=== PATIENT | male | born 1930 | race Caucasian/White ===

== ENCOUNTER 2016-07-30 22:50 | Emergency (ER) | payer MEDICARE, BC ==
[2016-07-31 00:22] LABS: Appearance,Urine Cloudy (Clear); Bilirubin,Urine Negative (Negative); Glucose,Urine (UA) Negative (Negative); Ketones,Urine Negative (Negative); Leukocyte Esterase,Urine Moderate (Negative); Mucus,Urine Rare /hpf; Nitrite,Urine Negative (Negative); PH, Urine 5.5 (5.0-8.0); Particle Count 3724; Protein,Urine 1+ (Negative); RBC,Urine >182 /hpf (0-5); Specific Gravity,Urine 1.017 (1.001-1.035); Squamous Epithelial Cell,Urine <1 /hpf (0-4); UA Billing (MACRO vs. MICRO) MICRO; Urobilinogen,Urine <2.0 mg/dL (<2.0); WBC,Urine >182 /hpf (0-5)
--- NOTE | 2016-07-31 00:33 | ED ---
Male Urogenital HPI - General Chief complaint: Urogenital Stated complaint: Post OP Urine Retention Source: patient Mode of arrival: ambulatory Limitations: no limitations - History of Present Illness Initial comments: 85-year-old male with past medical history of hyperlipidemia, hypothyroidism, bilateral thumb surgeries, and tumor removal from his bladder on multiple occasions including this past Monday presented for evaluation of dysuria. He states on Monday he was seen by his urologist who removed some tumors from his bladder and placed a Aguirre catheter that was just removed this morning. Since then he has had the sensation that he needs to urinate however he is unable to produce much urine at all. He states there is a burning in his urethra as well as in his bladder. He denies any fevers, chills, nausea, vomiting, abdominal pain, chest pain, shortness of breath. He states that in previous procedures he has not had these symptoms however his urologist did state that is much more significant this time around. - Related Data Previous Rx's Medication Instructions Recorded Ciprofloxacin HCl [Cipro] 500 mg PO Q12HR #14 tablet 07/31/16 Allergies Allergy/AdvReac Type Severity Reaction Status Date / Time [place] And Derivatives Allergy Anaphylaxis Verified 07/30/16 23:00 morphine AdvReac Nausea & Verified 07/30/16 23:00 Vomiting tolmetin [From Tolectin] AdvReac Unknown Verified 07/30/16 23:00 anti-inflammatories Allergy Rash/Hives Uncoded 07/30/16 23:00 Review of Systems ROS Statement: Those systems with pertinent positive or pertinent negative responses have been documented in the HPI. ROS Other: All systems not noted in ROS Statement are negative. Constitutional: Denies: fever, chills Eyes: Denies: eye pain, eye discharge ENT: Denies: ear pain, throat pain Respiratory: Denies: cough, dyspnea Cardiovascular: Denies: chest pain, palpitations Endocrine: Denies: fatigue, polydipsia, polyuria Gastrointestinal: Denies: abdominal pain, nausea, vomiting Genitourinary: Reports: urgency, dysuria. Denies: frequency, hematuria Musculoskeletal: Denies: back pain, arthralgia Skin: Denies: rash, lesions Neurological: Denies: headache, weakness Psychiatric: Denies: anxiety, depression Hematological/Lymphatic: Denies: easy bleeding, easy bruising Past Medical History Past Medical History: Hyperlipidemia Additional Past Medical History / Comment(s): hypothyroidism, History of Any Multi-Drug Resistant Organisms: None Reported Additional Past Surgical History / Comment(s): bilateral thumb surgery, eyes, right shoulder, tumors removed from bladder, Past Psychological History: No Psychological Hx Reported Smoking Status: Former smoker Past Alcohol Use History: None Reported Past Drug Use History: None Reported General Exam Limitations: no limitations General appearance: alert, in no apparent distress Head exam: Present: atraumatic, normocephalic, normal inspection Eye exam: Present: normal appearance, PERRL, EOMI. Absent: scleral icterus, conjunctival injection, periorbital swelling ENT exam: Present: normal exam, mucous membranes moist Neck exam: Present: normal inspection. Absent: tenderness, meningismus, lymphadenopathy Respiratory exam: Present: normal lung sounds bilaterally. Absent: respiratory distress, wheezes, rales, rhonchi, stridor Cardiovascular Exam: Present: regular rate, normal rhythm, normal heart sounds. Absent: systolic murmur, diastolic murmur, rubs, gallop, clicks GI/Abdominal exam: Present: soft, normal bowel sounds. Absent: distended, tenderness, guarding, rebound, rigid Rectal exam: Present: deferred Extremities exam: Present: normal inspection, full ROM, normal capillary refill. Absent: tenderness, pedal edema, joint swelling, calf tenderness Back exam: Present: normal inspection Neurological exam: Present: alert, oriented X3, CN II-XII intact Psychiatric exam: Present: normal affect, normal mood Skin exam: Present: warm, dry, intact, normal color. Absent: rash Course Vital Signs 07/30/16 07/31/16 22:52 00:52 Temperature 98.5 F 97.4 F L Pulse Rate 79 70 Respiratory 20 18 Rate Blood Pressure 135/65 117/63 O2 Sat by Pulse 95 96 Oximetry Medical Decision Making - Medical Decision Making 85-year-old male presented for evaluation of dysuria. He states that he had tumors removed from his bladder by a urologist on Monday, had a Aguirre catheter in place since this morning when it was removed. Since then he said dysuria and feeling of urgency. The patient is able to produce urine and sample is positive for urinary tract infection. We'll provide the patient with an antibiotic and instructed to follow-up with his primary care physician or urologist but to return to this facility for symptoms should worsen or persist. The patient acknowledged an understanding of this information and agreed with this plan of care. - Lab Data Lab Results 07/31/16 Range/Units 00:02 Urine Color Yellow Urine Appearance Cloudy (Clear) Urine pH 5.5 (5.0-8.0) Ur Specific [place] 1.017 (1.001-1.035) Urine Protein 1+ H (Negative) Urine Glucose (UA) Negative (Negative) Urine Ketones Negative (Negative) Urine Blood Large H (Negative) Urine Nitrite Negative (Negative) Urine Bilirubin Negative (Negative) Urine Urobilinogen <2.0 (<2.0) mg/dL Ur Leukocyte Esterase Moderate H (Negative) Urine RBC >182 H (0-5) /hpf Urine WBC >182 H (0-5) /hpf Ur Squamous Epith Cells <1 (0-4) /hpf Urine Mucus Rare H (None) /hpf Disposition Clinical Impression: UTI (urinary tract infection) Disposition: HOME SELF-CARE Condition: Stable Instructions: Urinary Tract Infection in Men (ED) Additional Instructions: Please use medication as discussed. Please follow up with family doctor if symptoms have not improved over the next two days. Please return to the emergency room if your symptoms increase or worsen or for any other concerns. Prescriptions: Ciprofloxacin HCl [Cipro] 500 mg PO Q12HR #14 tablet Referrals: Paige Mccoy MD [Primary Care Provider] - 1-2 days Time of Disposition: 00:33
[2016-07-31 00:59] VITALS: BP 117/63; PULSE 70; RESP 18; TEMP 97.4
== END 2016-07-31 00:52 | disposition home or self-care (01) ==
LOC: EC 22:50
DX: N39.0 Urinary tract infection, site not specified (principal); Z98.890 Other specified postprocedural states; Z87.891 Personal history of nicotine dependence; Z88.5 Allergy status to narcotic agent; Z88.6 Allergy status to analgesic agent; Z88.8 Allergy status to other drugs, medicaments and biological substances; Z91.02 Food additives allergy status
CPT/HCPCS: 51798; 81001; 99284

== ENCOUNTER → 2016-10-27 | Outpatient (CLI) | payer MEDICARE, BC ==
--- NOTE | 2016-10-27 12:27 | CONS ---
CONSULTATION DATE OF SERVICE: 10/27/2016 An 85-year-old gentleman has been evaluated in the [facility] for obstructive sleep apnea-hypopnea syndrome. HISTORY OF PRESENT ILLNESS/SLEEP-WAKE EVALUATION: Patient had a sleep study about 5 years ago. That was while he was in [place], but he is not sure what was the results of this sleep study. At the present time, his sleep schedule from midnight until 5 am. He does have problem with falling asleep, although no TV in bedroom. He has loud snoring and witnessed episodes of stopped breathing during the sleep by his family for many years. He wakes up multiple times from sleep with a dry mouth, heartburn, restless legs, positive history of sleep talking and nocturia. Positive history of significant movement during the night and sometimes he hitting the wall with his arms. Patient had several episodes of falling out of bed. During the day, he feels significantly sleepy. [place] Sleepiness Scale increased to 19. He has difficulties to pay attention, falling asleep during the day. Worry about his sleep, has problems with memory, concentration, diabetes, depression and anxiety. PAST MEDICAL HISTORY: Positive for diabetes, hyperlipidemia, acid reflux. PAST SURGICAL HISTORY: Cholecystectomy, bladder surgery for CA in 07/2016. SOCIAL HISTORY: Positive for smoking up to about 60-pack years. Quit about 4 years ago. Alcohol consumption rarely. FAMILY HISTORY: Hypertension, hyperlipidemia, arthritis, sinus headaches, acid reflux, diabetes, restless legs. MEDICATIONS: Trazodone, levothyroxine, omeprazole, atorvastatin, NovoLog. REVIEW OF SYSTEMS: Multiple awakenings from sleep, sleepiness during the day. PHYSICAL EXAM: An 85-year-old gentleman without distress. BP 114/51, HR 90, RR 16, height 5, 5-1/2, weight 168, BMI 27.5. Neck 16 inches in circumference. Temp 97.8. OROPHARYNX: Low position of soft palate. NOSE: Symmetric. ABDOMEN: Slightly obese. Neck Supple, no JVD. Thyroid is not palpable. LUNGS Clear to percussion and to auscultation. Good air exchange. No wheezing or rhonchi. HEART S1, S2 regular. No murmurs, gallops, or rubs. EXTREMITIES No clubbing or cyanosis. BOARD MEMBER Awake, alert, and oriented X3. Cranial nerves 2 to 7 intact. There is no fasciculation or atrophy. noted. No focal deficits observed. IMPRESSION: 1. Snoring, witnessed episodes of stopped breathing during the sleep, multiple awakenings from sleep, low position of soft palate. Extremely significant excessive daytime sleepiness. [place] Sleepiness Scale increased to 19, obstructive sleep apnea-hypopnea syndrome. 2. Significant movements during sleep, hitting the wall with the arms, several episodes of falling out of bed. 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 3. History of bladder CA, status post surgical treatment several months ago. 4. Acid reflux. 5. Hyperlipidemia. 6. Diabetes mellitus. 7. Status post cholecystectomy. PLAN: 1. Polysomnography for evaluation of patient's breathing during sleep. 2. CPAP/BiPAP titration if sleep study confirms obstructive sleep apnea-hypopnea syndrome. 3. Preferable position during sleep on the side. 4. No driving if patient feels any sleepiness. Patient is aware of civil and criminal liability for unsafe driving. 5. I will see patient for follow up visit to explain results of testing and following plan. If sleep study will be negative for obstructive sleep apnea-hypopnea syndrome, we will proceed with multiple sleep latency test for objective evaluation of patient's symptoms of significant excessive daytime sleepiness. Thank you very much for referring this patient for consultation. Sincerely, Myke Vallejo MD, PhD, FAASM Diplomat of [employer] [facility] [place] MMMARITA / ANNA: [id number] /
== END ==
LOC: SLEEP 11:07
PROVIDERS: ATTEND Internal Medicine
DX: G47.33 Obstructive sleep apnea (adult) (pediatric) (principal); K21.9 Gastro-esophageal reflux disease without esophagitis; E78.5 Hyperlipidemia, unspecified; E11.9 Type 2 diabetes mellitus without complications; Z90.49 Acquired absence of other specified parts of digestive tract; Z87.891 Personal history of nicotine dependence; Z79.899 Other long term (current) drug therapy
CPT/HCPCS: 99211

== ENCOUNTER → 2017-11-20 | Outpatient (CLI) | payer OTHER ==
--- NOTE | 2017-11-24 11:52 | ECHOF ---
Referral Reason:M25.512 Pain in left shoulder MEASUREMENTS -------- HEIGHT: 170.2 cm WEIGHT: 76.7 kg BP: 137/65 RVIDd: 3.3 cm (< 3.3) IVSd: 1.3 cm (0.6 - 1.1) LVIDd: 3.6 cm (3.9 - 5.3) LVPWd: 1.1 cm (0.6 - 1.1) IVSs: 1.8 cm LVIDs: 2.3 cm LVPWs: 1.5 cm LA Diam: 3.3 cm (2.7 - 3.8) LAESV Index (A-L): 25.67 ml/m Ao Diam: 3.2 cm (2.0 - 3.7) AV Cusp: 2.4 cm (1.5 - 2.6) MV EXCURSION: 13.666 mm (> 18.000) MV EF SLOPE: 27 mm/s (70 - 150) EPSS: 0.7 cm MV E Casey: 0.71 m/s MV DecT: 410 ms MV A Casey: 1.19 m/s MV E/A Ratio: 0.60 RAP: 5.00 mmHg RVSP: 30.18 mmHg FINDINGS -------- Sinus rhythm. This was a technically good study. The left ventricular size is normal. There is mild concentric left ventricular hypertrophy. Overa ll left ventricular systolic function is normal with, an EF between 55 - 60 %. The right ventricle is mildly enlarged. Normal LA size by volume 22+/-6 ml/m2. The right atrium is normal in size. The aortic valve is trileaflet and appears structurally normal. Mild mitral regurgitation is present. Mild tricuspid regurgitation present. Right ventricular systolic pressure is normal at < 35 mmHg. There is no pulmonic regurgitation present. The aortic root size is normal. Normal inferior vena cava with normal inspiratory collapse consistent with estimated right atrial pre ssure of 5 mmHg. There is no pericardial effusion. CONCLUSIONS -------- 1. Sinus rhythm. 2. This was a technically good study. 3. The left ventricular size is normal. 4. There is mild concentric left ventricular hypertrophy. 5. Overall left ventricular systolic function is normal with, an EF between 55 - 60 %. 6. The right ventricle is mildly enlarged. 7. Normal LA size by volume 22+/-6 ml/m2. 8. The right atrium is normal in size. 9. The aortic valve is trileaflet and appears structurally normal. 10. Mild mitral regurgitation is present. 11. Mild tricuspid regurgitation present. 12. Right ventricular systolic pressure is normal at < 35 mmHg. 13. There is no pulmonic regurgitation present. 14. The aortic root size is normal. 15. Normal inferior vena cava with normal inspiratory collapse consistent with estimated right atrial pressure of 5 mmHg. 16. There is no pericardial effusion. DISTRIBUTION LINEMAN: Kassie Rojo RDCS
== END | disposition home or self-care (01) ==
LOC: RADECHMAIN 08:07
PROVIDERS: ATTEND Nurse Practitioner Acute Care
DX: I08.1 Rheumatic disorders of both mitral and tricuspid valves (principal)
CPT/HCPCS: 93306

== ENCOUNTER → 2018-08-28 | Outpatient (CLI) | payer OTHER ==
--- NOTE | 2018-08-28 20:03 | US ---
EXAMINATION TYPE: US carotid duplex BILAT DATE OF EXAM: 08/28/2018 COMPARISON: NONE CLINICAL HISTORY: R42 DIZZINESS. Dizziness. EXAM MEASUREMENTS: RIGHT: Peak Systolic Velocity (PSV) cm/sec ----- Right CCA: 57.8 ----- Right ICA: 74.8 ----- Right ECA: 86.7 ICA/CCA ratio: 1.3 RIGHT: End Diastole cm/sec ----- Right CCA: 12.8 ----- Right ICA: 22.0 ----- Right ECA: 0 LEFT: Peak Systolic Velocity (PSV) cm/sec ----- Left CCA: 90.7 ----- Left ICA: 73.5 ----- Left ECA: 77.5 ICA/CCA ratio: 0.8 LEFT: End Diastole cm/sec ----- Left CCA: 19.3 ----- Left ICA: 12.7 ----- Left ECA: 0 VERTEBRALS (direction of flow): Right Vertebral: Antegrade Left Vertebral: Antegrade Rhythm: Normal Grayscale images show poor visualization of plaque with more prominent hypoechoic plaque seen on colo r images at right carotid bulb. Mild peripheral plaque is seen throughout left carotid artery centere d near carotid bulb. Velocity measurements and ratios remain within normal limits bilaterally. IMPRESSION: No hemodynamic significant stenosis in either internal carotid artery Criteria for Assigning % of Stenosis / Diameter reduction (Estimation based on the indirect measurements of the internal carotid artery velocities (ICA PSV). 1. Normal (no stenosis)=ICA PSV < 125 cm/s: ratio < 2.0: ICA EDV<40 cm/s. 2. Less than 50% stenosis=ICA PSV < 125 cm/s: ratio < 2.0: ICA EDV<40 cm/s. 3. 50 to 69% stenosis=ICA PSV of 125 to 230 cm/s: ration 2.0 ? 4.0: ICA EDV 40-100 cm/s. 4. Greater than 70% stenosis to near occlusion= ICA PSV > 230 cm/s: ratio > 4.0: ICA EDV > 100 cm/s. 5. Near occlusion= ICA PSV velocities may be low or undetectable: variable ratio and ICA EDV. 6. Total occlusion=unable to detect flow.
== END | disposition home or self-care (01) ==
LOC: RADUSWWP 16:20
PROVIDERS: ATTEND Family Medicine
DX: R42 Dizziness and giddiness (principal)
CPT/HCPCS: 93880

== ENCOUNTER → 2018-09-13 | Outpatient (CLI) | payer OTHER ==
--- NOTE | 2018-09-13 08:40 | CT ---
EXAMINATION TYPE: CT chest wo con DATE OF EXAM: 09/13/2018 COMPARISON: Chest x-ray 09/06/2018 HISTORY: Difficulty breathing CT DLP: 195 mGycm. Automated Exposure Control for Dose Reduction was Utilized. TECHNIQUE: CT scan of the thorax is performed without IV contrast. FINDINGS: LUNGS: There is a spiculated mass in the anterior portion of the left upper lobe situated behind ante rior rib suspicious for malignancy. Diffuse emphysematous changes are seen with findings suggestive of chronic interstitial pulmonary fib rosis. Pleural based thickening is noted bilaterally. Basilar bronchiectasis suggested.. MEDIASTINUM: Lack of IV contrast is noted to limit evaluation for mediastinal and especially hilar ad enopathy. There is a lymph node in the pretracheal space measuring a short axis of 1.3 cm compatible with adenopathy. There are additional other areas of shotty lymphadenopathy. Coronary artery calcific ation noted. OTHER: Hypertrophic and degenerative change of the spine. Previous cholecystectomy changes are noted. Indeterminate hypodense lesion involving the left kidney by noncontrast high resolution CT technique .. IMPRESSION: 1. There is a 2.2 cm spiculated mass in the left upper lobe. Findings suspicious for malignancy. This would be best evaluated with a standard CT of the chest with contrast. 2. Diffuse emphysematous changes and findings suggestive of pulmonary fibrosis. 3. Indeterminate and incompletely evaluated left renal lesion.
== END | disposition home or self-care (01) ==
LOC: RADCTMAIN 07:43
PROVIDERS: ATTEND Internal Medicine Critical Care Medicine
DX: J43.9 Emphysema, unspecified (principal)
CPT/HCPCS: 71250

== ENCOUNTER → 2018-09-22 | Outpatient (CLI) | payer OTHER ==
--- NOTE | 2018-09-24 16:46 | PE ---
Nuclear medicine PET/CT HISTORY: Solitary pulmonary nodule, initial Patient received 10.7 mCi F-18 FDG intravenously in delayed scanning was performed from the skull bas e to the mid thighs. An attenuation correction and localization CT was performed. Correlation to CT chest 09/13/2018 Neck and chest: There is no cervical, supraclavicular, axillary, or hilar adenopathy. There are shott y nodes present in the prevascular space, retrocaval pretracheal mediastinum shows a node measuring 1 2 mm in short axis, there is mild hypermetabolic uptake associated with the prevascular nodes. There is a left upper lobe lung mass with spiculated margins extending to the pleural surface as noted on p jessica's chest CT, there is associated hypermetabolic uptake, SUV is 7.1. Extensive emphysematous jose miguel nges, interstitial changes are present within the lungs. No pleural or pericardial effusion. There ar e coronary artery calcifications present. ABDOMEN: There is no adrenal mass. No retroperitoneal adenopathy or liver mass, no suspicious uptake. Patient is post cholecystectomy. Osseous structures show no suspicious abnormality. IMPRESSION: Findings could represent bronchogenic carcinoma left upper lobe.
== END | disposition home or self-care (01) ==
LOC: RADPETMAIN 14:03
PROVIDERS: ATTEND Internal Medicine Critical Care Medicine
DX: R91.1 Solitary pulmonary nodule (principal)
CPT/HCPCS: 78815; A9552

== ENCOUNTER 2018-11-14 10:55 | Day surgery (SDC) | payer OTHER ==
[2018-11-08 15:42] VITALS: BMI 27.1
[~2018-11-14 10:55] MED LIST: ALBUTEROL NEB (CONC) 2.5 MG/0.5 ML INHALATION ONE; ATROPINE SULFATE 0.4 MG/ML 1 ML VIAL IM ONE; LACTATED RINGERS 1,000 ML IV SCH; LIDOCAINE 1% 20 ML VIAL (10MG/ML) FOR IV START INTRADERMA PRN; LIDOCAINE 2% (PF) 20 MG/ML 5 ML VIAL INHALATION ONE; LIDOCAINE VISCOUS 300 MG/15 ML CUP MUCOUS MEM ONE; ONDANSETRON 4 MG/2 ML VIAL IVP PRN; SODIUM CHLORIDE 0.9% 1,000 ML IV SCH
[2018-11-14 11:53] LABS: Glucose,Whole Blood 89 mg/dL (75-99)
[2018-11-14] MEDS ORDERED: fentaNYL (PF) 50 MCG/ML 2 ML AMP ONE (13:01)
[2018-11-14] MEDS ORDERED: NEOSTIGMINE 1 MG/ML 10 ML VIAL ONE (13:01)
[2018-11-14] MEDS ORDERED: PROPOFOL 10 MG/ML 20 ML VIAL IV ONE (13:01)
[2018-11-14] MEDS ORDERED: ROCURONIUM BROMIDE 10 MG/ML 10 ML VIAL IV ONE (13:01)
[2018-11-14] MEDS ORDERED: GLYCOPYRROLATE 0.2 MG/ML 2 ML VIAL ONE (13:01)
[2018-11-14] MEDS ORDERED: SUCCINYLCHOLINE CHLORIDE 100 MG/5 ML SYR IV ONE (13:01)
[2018-11-14 14:17] VITALS: TEMP 97.2
--- NOTE | 2018-11-14 14:35 | XR ---
EXAMINATION TYPE: XR chest 1V portable DATE OF EXAM: 11/14/2018 COMPARISON: 09/06/2018 HISTORY: Post left upper lobe lung biopsy TECHNIQUE: Single frontal view of the chest is obtained. FINDINGS: Irregular masslike density left upper lobe is seen with no sizable pneumothorax. Underlyin g COPD and chronic interstitial lung disease suspected. Heart size stable. Diffuse osteopenia. IMPRESSION: 1. No pneumothorax. 2. Left upper lobe mass.
--- NOTE | 2018-11-14 15:03 | CT ---
EXAMINATION TYPE: CT Chest roseanna Davis Protocol DATE OF EXAM: 11/14/2018 COMPARISON: Nuclear medicine PET/CT 09/22/2018, chest CT 09/13/2017 HISTORY: Pre bronchial navigation CT DLP: 575 mGycm Automated exposure control for dose reduction was used. Helical position to the chest. FINDINGS: Exam was performed for bronchoscopy planning. Patient's left upper lobe pleural-based mass with spicu lated margins is again noted and measures approximately 3.8 cm. There is extensive emphysematous chavarria ge present. There are interstitial changes present especially at the lung bases. Coronary artery calcifications are present. Prevascular nodes are present again seen, there is retroc aval pretracheal node which is enlarged measuring 11 mm. No pleural or pericardial effusion. Patient is post cholecystectomy. IMPRESSION: CTA FOR BRONCHOSCOPY PLANNING PURPOSES.
[2018-11-14 15:08] VITALS: RESP 16
[2018-11-14 15:20] VITALS: BP 125/67
[2018-11-14 15:20] LABS: Appearance,BF Hazy; Color,BF Red
[2018-11-14 15:21] LABS: RBC, Body Fluid 12800 /uL
[2018-11-14 15:24] LABS: Mononuclear WBC,Body Fluid 11 %; Polynuclear WBC,Body Fluid 89 %
[2018-11-14 15:34] VITALS: PULSE 54
--- NOTE | 2018-11-14 23:40 | PCN ---
PROCEDURE NOTE PROCEDURE PERFORMED: Electromagnetic navigational bronchoscopy. OPERATORS: Dr. Lopez and Dr. Andrew ANESTHESIA: The patient's procedure was done under general anesthesia. Dr. Landa and BEHAVIOUR SUPPORT TEACHER provided that for us. PREOP DIAGNOSIS: Left upper lobe lesion, rule out cancer. POSTOP DIAGNOSIS: Left upper lobe lesion, rule out cancer. The patient had informed consent and universal timeout. DESCRIPTION OF PROCEDURE: After the patient was sedated and under the effects of anesthesia, the bronchoscope was inserted through the bronchoscope adapter connected to the endotracheal tube. We did sampling via the computer analysis in the lingula. We did brushes in the lingula, Villagran needle biopsies in the lingula. Transbronchial biopsies in the same location and BAL. We did have pathology standing by. They looked at some of the needle biopsies. Dr. Caldwell thought that we did get a diagnosis of non-small cell lung cancer. The patient tolerated the procedure well. A chest x-ray will be done. The patient will be recovered. Once recovered properly, the patient will be discharged home. I will speak to the patient's daughter. MMODL / IJN: [id number] /
[2018-11-15 14:53] LABS: Nucleated Cells, Body Fluid 900 /uL
== END 2018-11-14 15:50 | disposition home or self-care (01) ==
LOC: ORWHC2ENDO 10:55
PROVIDERS: ATTEND Internal Medicine Critical Care Medicine
DX: C34.12 Malignant neoplasm of upper lobe, left bronchus or lung (principal); J84.9 Interstitial pulmonary disease, unspecified; Z87.891 Personal history of nicotine dependence; E78.5 Hyperlipidemia, unspecified; E11.9 Type 2 diabetes mellitus without complications; J44.9 Chronic obstructive pulmonary disease, unspecified; F32.9 Major depressive disorder, single episode, unspecified; E03.9 Hypothyroidism, unspecified; I25.10 Atherosclerotic heart disease of native coronary artery without angina pectoris; F03.90 Unspecified dementia, unspecified severity, without behavioral disturbance, psychotic disturbance, mood disturbance, and anxiety; K21.9 Gastro-esophageal reflux disease without esophagitis; I25.2 Old myocardial infarction; Z90.49 Acquired absence of other specified parts of digestive tract; Z79.890 Hormone replacement therapy; Z79.4 Long term (current) use of insulin; Z79.51 Long term (current) use of inhaled steroids; Z79.899 Other long term (current) drug therapy; Z88.6 Allergy status to analgesic agent; Z88.4 Allergy status to anesthetic agent; Z88.5 Allergy status to narcotic agent; Z88.2 Allergy status to sulfonamides; Z91.018 Allergy to other foods
CPT/HCPCS: 31628; 88104; 88108; 88305; 88173; 89050; 88342; 88341; 71045; 71250; 31623; 31624; 31627; J0461; J2710; J2405; J3010; J0330; J2704; 31625; 31629

== ENCOUNTER → 2018-12-20 | Outpatient (CLI) | payer OTHER ==
[2018-12-20 15:24] LABS: Basophils % (A) 1 %; Eosinophils # (A) 0.2 k/uL (0-0.7); Eosinophils % (A) 3 %; HCT 39.7 % (39.0-53.0); HGB 13.8 gm/dL (13.0-17.5); Lymphocytes # (A) 2.4 k/uL (1.0-4.8); Lymphocytes % (A) 32 %; MCH 32.1 pg (25.0-35.0); MCHC 34.7 g/dL (31.0-37.0); MCV 92.5 fL (80.0-100.0); Mean Platelet Volume 5.7; Monocytes # (A) 0.4 k/uL (0-1.0); Monocytes % (A) 5 %; Neutrophils # (A) 4.3 k/uL (1.3-7.7); Neutrophils % (A) 58 %; Platelet Count 219 k/uL (150-450); RBC 4.29 m/uL (4.30-5.90); WBC 7.5 k/uL (3.8-10.6)
[2018-12-20 15:27] LABS: INR 0.9 (<1.2); Partial Thromboplastin Time 25.1 sec (22.0-30.0)
--- NOTE | 2018-12-20 15:44 | CONS ---
CONSULTATION SOURCE OF CONSULT: Mr. Kumar is an 88-year-old male who presents with a newly discovered mass in the left upper lobe of the lung. 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 PET scan shows speculated mass in the left upper lobe about 2 cm in diameter with no evidence of metastatic disease. Patient is referred for evaluation for possible resection. PREVIOUS MEDICAL HISTORY: Includes diabetes. The patient does not have a significant cardiac history. Does not have hypertension. PREVIOUS SURGICAL HISTORY: Includes cholecystectomy, cystectomy with removal of bladder carcinoma and hand surgery for a cut tendon in 1997. FAMILY HISTORY: Positive for coronary artery disease in both parents. The patient does not drink or smoke to excess. Pulmonary function testing is abnormal with normal FEV1 and FVC with decreased lung volumes and decreased DLCO cells. This is felt to be consistent with the degree of pulmonary fibrosis of unknown etiology. PHYSICAL EXAMINATION: Reveals a fit appearing elderly male in no distress. Pupils are equal and reactive to light. Extraocular motions are intact. Lung ramirez are clear with bilateral faint crackles. Heart rate and rhythm are regular without murmur, rub, or gallop. Abdomen is soft and nontender without masses. Extremities demonstrate good pulses and no edema. No cyanosis or clubbing. 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 It is stage IA by CT and PET criteria and patient is referred for resection. I discussed with the patient and her family options which include radiation therapy, minimally invasive surgical wedge resection or minimally invasive surgical lobectomy. It is my bias that lobectomy is of relatively limited additional benefit to either wide wedge resection or radiation therapy in this female based on her age and based on her history of pulmonary disease. The patient would prefer surgery to radiation therapy and a wedge resection will be scheduled next week. Wide wedge resection via thoracoscopic approach will be utilized. Indications for the procedure risks versus benefits and possible complications were all outlined. The usual perioperative course was discussed. All the patient and her daughter's questions were answered. MMODL / IJN: [id number] /
== END | disposition home or self-care (01) ==
LOC: LABPAT 13:58
PROVIDERS: ATTEND Thoracic Surgery (Cardiothoracic Vascular Surgery)
DX: Z01.812 Encounter for preprocedural laboratory examination (principal); E87.8 Other disorders of electrolyte and fluid balance, not elsewhere classified; C34.90 Malignant neoplasm of unspecified part of unspecified bronchus or lung; R58 Hemorrhage, not elsewhere classified
CPT/HCPCS: 80051; 82565; 84520; 85025; 85610; 85730

== ENCOUNTER 2018-12-27 08:42 | Inpatient (IN) | payer OTHER ==
[2018-12-25 15:06] VITALS: BMI 27.4
[~2018-12-27 08:42] MED LIST changes: -ALBUTEROL NEB (CONC) 2.5 MG/0.5 ML INHALATION ONE; -ATROPINE SULFATE 0.4 MG/ML 1 ML VIAL IM ONE; +DEXAMETHASONE SOD PHOSPHATE 10 MG/ML 1 ML VIAL IV ONE; -LIDOCAINE 2% (PF) 20 MG/ML 5 ML VIAL INHALATION ONE; -LIDOCAINE VISCOUS 300 MG/15 ML CUP MUCOUS MEM ONE; -ONDANSETRON 4 MG/2 ML VIAL IVP PRN; -SODIUM CHLORIDE 0.9% 1,000 ML IV SCH; +fentaNYL (PF) 50 MCG/ML 2 ML AMP IVP PRN
[2018-12-27 09:30] LABS: Glucose,Whole Blood 204 mg/dL (75-99)
[2018-12-27] MEDS ORDERED: ONDANSETRON 4 MG/2 ML VIAL IVP ONE ×2 (09:32→14:07)
[2018-12-27] MEDS ORDERED: INSULIN ASPART (NovoLOG) 100 UNIT/ML VIAL SQ ONE ×3 (09:32→15:34)
[2018-12-27] MEDS ORDERED: ALBUTEROL INHALER 60 PUFF/8 GM INHALER INHALATION ONE (10:15)
[2018-12-27] MEDS ORDERED: GLYCOPYRROLATE 0.2 MG/ML 2 ML VIAL ONE (10:15)
[2018-12-27] MEDS ORDERED: LIDOCAINE 1% INJ 10MG/ML (20 ML MDV) ONE (10:15)
[2018-12-27] MEDS ORDERED: NEOSTIGMINE 1 MG/ML 10 ML VIAL ONE (10:15)
[2018-12-27] MEDS ORDERED: PHENYLEPHRINE-0.9% NACL SYG 1 MG/10 ML SYRINGE ONE (10:15)
[2018-12-27] MEDS ORDERED: ROCURONIUM BROMIDE 10 MG/ML 10 ML VIAL IV ONE (10:15)
[2018-12-27] MEDS ORDERED: LABETALOL 5 MG/ML VIAL MDV ONE (10:15)
[2018-12-27] MEDS ORDERED: fentaNYL (PF) 50 MCG/ML 2 ML AMP ONE (10:15)
[2018-12-27] MEDS ORDERED: PROPOFOL 10 MG/ML 20 ML VIAL IV ONE (10:15)
[2018-12-27] MEDS ORDERED: SUCCINYLCHOLINE CHLORIDE 100 MG/5 ML SYR IV ONE (10:15)
[2018-12-27] MEDS ORDERED: BUPIVACAINE (PF) 0.5% 30 ML VIAL SQ ONE ×2 (11:11→11:42)
--- NOTE | 2018-12-27 11:57 | P.OP ---
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 Maximal diameter is about 4 cm. Tumor is peripheral. PET scan shows uptake in the mass and no evidence of metastasis. Patient was offered surgical resection versus radiation oncology. Patient opted for surgical resection. Given his age and overall performance status a wide wedge resection was felt preferable to lobectomy. Operative Findings: Fibrotic change in the visceral pleura. No evidence of adherence of the visceral pleura to the parietal pleura. Large tumor underlying the fibrotic change as noted above. Wedge resection was performed with excellent gross margins. Description of Procedure: The patient was brought to the operating room, placed supine on the operating table, anesthetized and intubated with a double-lumen endotracheal tube. Fiberoptic intubation was required. Following intubation the tube was appropriately positioned. No endobronchial lesions were seen. The tube was secured and the patient was turned in the right lateral decubitus position. The left chest was sterilely prepped and draped. 3 one-inch incisions were made in the left chest and the left lung was deflated. Video thoracoscope was introduced and the chest was explored. The tumor was identified posteriorly near the apex of the left upper lobe. Tissues were fairly boggy and we used a extra thick stapler in order to perform the wedge resection. All to firings of Endo JOSE extra thick stapler were performed in order to widely wedge out the mass in the left upper lobe. Specimen was placed in an Endo Catch bag. Most anterior and superior incision was enlarged in order to allow passage of the specimen out of the chest in the Endo Catch bag. Following this the staple lines were checked and noted to be intact. There was no bleeding. There appeared to be good aero stasis. 28-Israeli chest tube was placed through separate stab incision anteriorly and positioned posterior apically. Secured to skin with an 0 Ethibond suture. The lung was inflated under thoracoscopic visualization and then the thoracoscope was removed. The incisions were closed with layers of Vicryl suture. Rib blocks were performed posteriorly at the level of the incisions with half percent Marcaine. Skin glue and dry sterile dressings were applied. Patient was extubated and transferred to recovery in stable condition.
[2018-12-27] MEDS ORDERED: LACTATED RINGERS 1,000 ML IV ONE ×2 (12:28)
--- NOTE | 2018-12-27 13:07 | XR ---
EXAMINATION TYPE: XR chest 1V portable DATE OF EXAM: 12/27/2018 COMPARISON: Prior chest x-ray 11/14/2018 HISTORY: Post wedge resection TECHNIQUE: Single frontal view of the chest is obtained. FINDINGS: There is been interval placement of a left chest tube, surgical raffaele are present in the left lung, parenchymal increased density is likely postoperative within the left lung. No evident pn eumothorax. Lung volumes are low. No sizable effusion. Heart size is likely stable. IMPRESSION: Satisfactory postoperative chest x-ray.
[2018-12-27 13:12] LABS: Glucose,Whole Blood 249 mg/dL (75-99)
[2018-12-27] MEDS ORDERED: PHYSOSTIGMINE SALICYLATE 1 MG/ML 2 ML AMP IVP ONE (13:18)
[2018-12-27] MEDS ORDERED: HYDROmorphone 1 MG/ML 1 ML SYRINGE IVP ONE (13:19)
[2018-12-27] MEDS: HYDROmorphone 0.5 MG/0.5 ML SYRINGE IVP PRN ×6 (13:20→16:19)
[2018-12-27] MEDS ORDERED: LABETALOL SYRINGE 5 MG/ML IVP ONE (13:30)
[2018-12-27] MEDS ORDERED: FUROSEMIDE 10 MG/ML 2 ML VIAL IV STA (15:21)
[2018-12-27 15:25] LABS: Glucose,Whole Blood 298 mg/dL (75-99)
[2018-12-27] MEDS ORDERED: FUROSEMIDE 10 MG/ML 4 ML VIAL IV ONE (15:50)
[2018-12-27 16:14] LABS: Glucose,Whole Blood 271 mg/dL (75-99)
[2018-12-27] MEDS ORDERED: IPRATROPIUM-ALBUTEROL 3 ML NEB INHALATION PRN (16:16)
[2018-12-27] MEDS ORDERED: ACETAMINOPHEN TAB 500 MG TAB PO PRN (16:35)
[2018-12-27] MEDS ORDERED: SODIUM CHLORIDE 0.9% 1,000 ML IV SCH (16:35)
[2018-12-27] MEDS ORDERED: IPRATROPIUM-ALBUTEROL 3 ML NEB IH PRN (16:35)
[2018-12-27] MEDS ORDERED: ONDANSETRON 4 MG/2 ML VIAL IVP PRN (16:35)
[2018-12-27] MEDS ORDERED: NALOXONE 0.4 MG/ML 1 ML VIAL IV PRN (16:42)
[2018-12-27] MEDS: HEPARIN SODIUM,PORCINE 5,000 UNIT/ML 1 ML VIAL SQ SCH (16:58)
[2018-12-27 17:33] LABS: Glucose,Whole Blood 226 mg/dL (75-99)
[2018-12-27] MEDS: FORMOTEROL FUMARATE 20 MCG/2 ML NEBU INHALATION SCH (17:45)
[2018-12-27] MEDS: IPRATROPIUM-ALBUTEROL 3 ML NEB IH SCH ×2 (17:46→19:47)
[2018-12-27] MEDS: BUDESONIDE 1 MG/2 ML NEBU INHALATION SCH (17:46)
[2018-12-27] MEDS: INSULIN ASPART (NovoLOG) 100 UNIT/ML VIAL SQ SCH ×3 (18:14→20:34)
[2018-12-27] MEDS: traMADol 50 MG TAB PO SCH (18:19)
[2018-12-27] MEDS ORDERED: IPRATROPIUM-ALBUTEROL 3 ML NEB INHALATION SCH (20:00)
[2018-12-27 20:30] LABS: Glucose,Whole Blood 196 mg/dL (75-99)
[2018-12-27 20:31] LABS: ABG Base Excess -2.9 mmol/L; ABG HCO3 25 mmol/L (21-25); ABG Oxygen Saturation 99.3 % (94-97); ABG PCO2 60 mmHg (35-45); ABG PH 7.22 (7.35-7.45); ABG PO2 170 mmHg (83-108); ABG TCO2 27 mmol/L (19-24); Allen Test Performed? Yes
[2018-12-27] MEDS: INSULIN DETEMIR (LEVEMIR) 100 UNIT/ML SYR SQ SCH (20:35)
[2018-12-27 20:50] LABS: ABG Base Excess -2.5 mmol/L; ABG HCO3 25 mmol/L (21-25); ABG Oxygen Saturation 96.2 % (94-97); ABG PCO2 57 mmHg (35-45); ABG PH 7.25 (7.35-7.45); ABG PO2 87 mmHg (83-108); ABG TCO2 27 mmol/L (19-24); Allen Test Performed? Yes
--- NOTE | 2018-12-27 21:01 | CONS ---
CONSULTATION DATE OF CONSULTATION: December 27, 2018 HISTORY OF PRESENT ILLNESS: This is an 88-year-old male who I saw initially in evaluation. He was found to have a nodule in the left upper lung. He underwent the usual workup including a chest x-ray, CT scan, PET scan as well as pulmonary function testing. The PET scan suggested that the only lesion that was thought to be malignant was a lesion in the left upper lobe. He underwent electromagnetic navigational bronchoscopy under general anesthesia without difficulty, we made a diagnosis of squamous cell carcinoma of the lung. I thought he was early stage, stage IA, based on the fact that the lesion was relatively small and there was no distant disease including no hilar mediastinal adenopathy or metastasis. Anyway, I sent the patient to Dr. Loredo for evaluation. Dr. Loredo considered him a good candidate. His lung functions were reasonable. Today, he underwent a left thoracoscopic wedge resection of the left upper lobe lesion. It was done under general anesthesia. Anyway, the patient is back in the ICU because after extubation, the patient was a little sleepy and lethargic. He had some respiratory difficulty. They placed him on BiPAP and they wanted him and watched here in the ICU. Currently, he is here in the ICU. He is currently on BiPAP. He is moaning a bit. Seemed reasonably stable, though. ALLERGIES: CURRENT ALLERGIES INCLUDE CITRUS, NITROGLYCERIN, SULFA ANTIBIOTICS, VERSED, MORPHINE, TOLECTIN, AND ANTI INFLAMMATORIES. HOME MEDICATIONS: Include albuterol inhaler, omeprazole, multivitamins, levothyroxine, insulin, Celexa, and Symbicort. MEDICAL HISTORY: Interstitial lung disease, COPD, solitary pulmonary nodule left upper lobe, hypothyroidism, GERD, diabetes mellitus, and also sleep apnea syndrome. His sleep apnea syndrome was quite severe as he has an apnea-hypopnea index of 69. SOCIAL HISTORY: Positive for previous tobacco use. OCCUPATIONAL HISTORY: Noncontributory. FAMILY HISTORY: Noncontributory. Mother and father are healthy. REVIEW OF SYSTEMS: CONSTITUTIONAL negative. NEUROLOGIC negative. HEENT negative. CARDIOVASCULAR negative. PULMONARY: Pain at the surgical site. GI negative. negative. RHEUMATOLOGIC negative. IMMUNOLOGIC negative. ENDOCRINOLOGIC negative. DERMATOLOGIC negative. PHYSICAL EXAMINATION: VITAL SIGNS: Current vital signs are reviewed. Temperature is 97 degrees, heart rate 63, respiratory rate 20, blood pressure 106/51, and saturations are 99% on BiPAP. GENERAL: Appears in no acute distress. He is moaning a bit. No respiratory distress. HEENT examination is grossly unremarkable. BiPAP mask in place. NECK: Supple. Full range of motion. No adenopathy. Neck veins are flat. CARDIOVASCULAR examination reveals regular rhythm rate. Heart rate mid 60s. S1, S2 normal. LUNGS: Reveal diminished breath sounds throughout. A few scattered rhonchi. No wheezes. ABDOMEN: Soft. EXTREMITIES are intact. SKIN: Without rash. NEUROLOGIC: Examination is brief but nonfocal. LABS: Reviewed. Nothing new to report. Chest x-ray is reviewed. It shows a chest tube in a left chest. There is some interstitial changes from the patient's known history of interstitial lung disease. Other than that, the chest x-ray looks relatively stable. Medications are reviewed. We are going to add Pulmicort along with Perforomist twice a day. We will make sure the patient is on updrafts with albuterol and Atrovent. We will also make sure that the patient has an incentive spirometer. We will encourage him to use IS every hour while awake. We will also encourage deep breathing, coughing and clearing of secretions. ASSESSMENT: 1. Postoperative day #0 status post thoracoscopic wedge resection of a solitary pulmonary nodule, left upper lobe. 2. Status post electromagnetic navigational bronchoscopy with sampling of the lesion, which revealed squamous cell carcinoma. 3. History of chronic obstructive pulmonary disease. 4. History of interstitial lung disease. 5. Diabetes mellitus. 6. Hypothyroidism. 7. Gastroesophageal reflux disease. 8. Severe sleep apnea syndrome. PLAN: The patient is on appropriate pain medications. He is on BiPAP. Additional recommendations and suggestions are forthcoming. We will make sure he is on appropriate updrafts. We will also make sure that he is on the incentive spirometer q.1 hour while awake. We will encourage deep breathing, coughing and clearing of secretions. Prognosis is guarded. He did tell me in the office that he does have difficulty postsurgically with certain complications. We will follow closely. MMSILVANAL / YNESN: [id number] / MTDD
--- NOTE | 2018-12-27 21:19 | XR ---
EXAMINATION TYPE: XR chest 1V DATE OF EXAM: 12/27/2018 COMPARISON: 8 hours ago today HISTORY: Soft tissue air TECHNIQUE: Single frontal view of the chest is obtained. FINDINGS: There is left chest tube with the tip at the left lung apex. I see no definite pneumothora x. There is extensive soft tissue air over the left and right chest and the base of the neck. There i s no heart failure. IMPRESSION: Increased soft tissue air compared to last exam. No pneumothorax seen.
[2018-12-27 21:47] LABS: ABG Base Excess -2.7 mmol/L; ABG HCO3 24 mmol/L (21-25); ABG Oxygen Saturation 94.2 % (94-97); ABG PCO2 49 mmHg (35-45); ABG PH 7.29 (7.35-7.45); ABG PO2 68 mmHg (83-108); ABG TCO2 25 mmol/L (19-24); Allen Test Performed? Yes
[2018-12-27] MEDS: ACETAMINOPHEN IV (For NPO) 1,000 MG in EMPTY BAG 1 BAG IVPB PRN (22:23)
[2018-12-27 22:51] LABS: Basophils # (A) 0.1 k/uL (0-0.2); Basophils % (A) 0 %; Eosinophils % (A) 0 %; HCT 37.8 % (39.0-53.0); HGB 13.3 gm/dL (13.0-17.5); Lymphocytes % (A) 6 %; MCH 33.3 pg (25.0-35.0); MCHC 35.3 g/dL (31.0-37.0); MCV 94.3 fL (80.0-100.0); Mean Platelet Volume 5.8; Monocytes # (A) 0.7 k/uL (0-1.0); Monocytes % (A) 4 %; Neutrophils # (A) 13.8 k/uL (1.3-7.7); Neutrophils % (A) 89 %; Platelet Count 219 k/uL (150-450); RBC 4.01 m/uL (4.30-5.90); RDW 13.4 % (11.5-15.5); WBC 15.6 k/uL (3.8-10.6)
[2018-12-27 22:59] LABS: Calcium 7.9 mg/dL (8.4-10.2); Potassium 5.6 mmol/L (3.5-5.1)
[2018-12-28] MEDS: HEPARIN SODIUM,PORCINE 5,000 UNIT/ML 1 ML VIAL SQ SCH ×4 (00:06→23:58)
[2018-12-28] MEDS: traMADol 50 MG TAB PO SCH ×3 (00:11→10:51)
[2018-12-28 00:13] LABS: Glucose,Whole Blood 169 mg/dL (75-99)
[2018-12-28 01:19] LABS: ABG Base Excess -2.2 mmol/L; ABG HCO3 23 mmol/L (21-25); ABG PCO2 43 mmHg (35-45); ABG PH 7.35 (7.35-7.45); ABG PO2 80 mmHg (83-108); ABG TCO2 25 mmol/L (19-24); Allen Test Performed? Yes
[2018-12-28 02:48] LABS: Glucose,Whole Blood 168 mg/dL (75-99)
[2018-12-28] MEDS: ACETAMINOPHEN IV (For NPO) 1,000 MG in EMPTY BAG 1 BAG IVPB PRN (03:44)
[2018-12-28 04:54] LABS: Basophils # (A) 0.1 k/uL (0-0.2); Basophils % (A) 1 %; Eosinophils % (A) 0 %; HCT 34.8 % (39.0-53.0); HGB 12.4 gm/dL (13.0-17.5); Lymphocytes # (A) 1.6 k/uL (1.0-4.8); Lymphocytes % (A) 13 %; MCH 33.3 pg (25.0-35.0); MCHC 35.7 g/dL (31.0-37.0); MCV 93.3 fL (80.0-100.0); Mean Platelet Volume 6.4; Monocytes # (A) 0.6 k/uL (0-1.0); Monocytes % (A) 5 %; Neutrophils # (A) 9.3 k/uL (1.3-7.7); Neutrophils % (A) 79 %; Platelet Count 181 k/uL (150-450); RBC 3.73 m/uL (4.30-5.90); RDW 13.5 % (11.5-15.5); WBC 11.7 k/uL (3.8-10.6)
[2018-12-28 05:14] LABS: Calcium 7.9 mg/dL (8.4-10.2); Potassium 4.9 mmol/L (3.5-5.1)
[2018-12-28 06:52] LABS: Glucose,Whole Blood 172 mg/dL (75-99)
[2018-12-28] MEDS: LEVOTHYROXINE 50 MCG TAB PO SCH (06:54)
[2018-12-28] MEDS: INSULIN ASPART (NovoLOG) 100 UNIT/ML VIAL SQ SCH ×7 (07:00→20:14)
--- NOTE | 2018-12-28 07:40 | XR ---
EXAMINATION TYPE: XR chest 1V DATE OF EXAM: 12/28/2018 COMPARISON: Prior chest x-ray 12/27/2018 HISTORY: Status post wedge resection, chest tube TECHNIQUE: Single frontal view of the chest is obtained. FINDINGS: Extensive subcutaneous emphysema is again noted, left chest tube is in place. No sizable p neumothorax. Heart size is likely stable. No evident effusion. Interstitium is likely increased. IMPRESSION: Findings are similar to prior exam.
[2018-12-28] MEDS: MULTIVITAMINS, THERA 1 EACH TAB PO SCH (08:10)
[2018-12-28] MEDS: BUDESONIDE 1 MG/2 ML NEBU INHALATION SCH ×2 (08:10→19:55)
[2018-12-28] MEDS: PANTOPRAZOLE 40 MG TABLET PO SCH (08:10)
[2018-12-28] MEDS: IPRATROPIUM-ALBUTEROL 3 ML NEB IH SCH ×4 (08:10→19:55)
[2018-12-28] MEDS: FORMOTEROL FUMARATE 20 MCG/2 ML NEBU INHALATION SCH ×2 (08:10→19:55)
[2018-12-28] MEDS: ESCITALOPRAM 5 MG TAB PO SCH (08:10)
--- NOTE | 2018-12-28 08:47 | PN ---
PROGRESS NOTE DATE OF SERVICE: December 28, 2018 This is an 88-year-old male who I initially saw in evaluation for an abnormal chest x- ray and CAT scan showing 2.5 to 3 cm nodule in the left upper lobe. He underwent the usual workup including a chest x-ray, CT scan and PET scan. He also had pulmonary function testing. The CT scan showed a lesion in the left upper lobe abutting the pleural surface. The PET scan was positive for this lesion and only this lesion. We went ahead and did an electromagnetic navigational bronchoscopy on this patient. It was done under general anesthesia and the patient tolerated the procedure well without any difficulty. The biopsies were positive for squamous cell carcinoma. I gave him the option of chemo radiation versus surgical intervention. After some deliberation with his daughter, he chose surgery and yesterday, he underwent a video assisted thoracoscopic wedge resection of the left upper lobe lesion. Dr. Loredo said the surgery went well and all the margins were clear. Anyway, the patient was transferred back to the ICU because he was very sleepy post extubation. He was placed on BiPAP. Through the night, he became more and more distressed. Initially, blood gas showed significant alveolar hypoventilation. The patient was then taken off of BiPAP because of his worsening subcutaneous emphysema and placed on a Venturi mask at 40%. His subsequent blood gas was much improved. Currently, he is doing better. He is still very confused and disoriented. He is moaning and groaning. Not taking deep breaths. Not coughing or clearing secretion. His subcutaneous emphysema persists. There is fluctuation in the chest tube Pleur- evac, but no obvious leak is seen. PHYSICAL EXAMINATION: VITAL SIGNS: Current vital signs are reviewed. Temperature 98.5, heart rate 82, respiratory rate 18, blood pressure 123/66, mean 85 and 5 L saturation 95%. GENERAL: Appears in no acute distress. HEENT: Examination is grossly unremarkable. Venturi mask in place. NECK: Supple. Full range of motion. No adenopathy. Neck veins are flat. CARDIOVASCULAR: Examination reveals regular rhythm and rate. Heart rate 85. S1, S2 normal. No murmur. LUNGS: Reveal a few scattered rhonchi. No wheezes or crackles. Breath sounds are equal bilaterally but diminished throughout. He really does not take deep breaths. ABDOMEN: Soft. Bowel sounds are heard. EXTREMITIES: Are intact. No cyanosis, clubbing, or edema. SKIN: Without rash. There is significant subcutaneous emphysema in the neck, chest, and shoulder areas bilaterally on this patient. NEUROLOGIC: Examination is difficult to assess. He does respond appropriately and does move all 4 extremities. He seems a bit confused. LAB DATA: Lab data is reviewed. White count 11.7, hemoglobin 12.4, hematocrit 34.8, platelet count 181,000. Sodium 139, potassium 4.9, chloride 109, CO2 is 22. Anion gap is 8. BUN and creatinine were 38 and 1.87. Microbiology is negative. Chest x-ray shows significant bilateral and extensive subcutaneous emphysema. Left chest tube is noted. No obvious pneumothorax is seen. ASSESSMENT: 1. Postoperative day #1, status post video-assisted thoracoscopic wedge resection of a solitary pulmonary nodule, left upper lobe. 2. Status post electromagnetic navigational bronchoscopy with sampling of the lesion, which revealed squamous cell carcinoma. 3. History of chronic obstructive pulmonary disease. 4. History of interstitial lung disease. 5. Diabetes mellitus. 6. Hypothyroidism. 7. Gastroesophageal reflux disease. 8. Severe sleep apnea syndrome. PLAN: The patient is doing better this morning than last night. We took him off the BiPAP because it was causing worsening subcutaneous emphysema. We put him on a Venturi mask. Initial blood gases showed alveolar hypoventilation, possibly in part related to narcotics. His initial blood gas was pO2 of 68, pCO2 of 49 and pH 7.29. Subsequent blood gas shows a pO2 of 80, pCO2 of 43 and a pH 7.35. We will continue to follow. No additional recommendations are made. Prognosis is guarded. Again, we will encourage deep breathing, coughing, clearing of secretions. He should use the incentive spirometer q.1 hour. Medications are adjusted. No additional recommendations are made. Prognosis is guarded. MMODL / IJN: [id number] /
[2018-12-28] MEDS ORDERED: SYMBICORT 160-4.5 MCG INHALER INHALATION SCH (09:00)
--- NOTE | 2018-12-28 10:29 | P.PN ---
Subjective Progress Note Date: 12/28/18 Principal diagnosis: Squamous cell carcinoma left upper lobe of the lung. Previous medical history of interstitial lung disease, COPD, previous tobacco dependence, sleep apnea syn drome without CPAP use, chronic kidney disease, hypothyroidism, diabetes, GERD. POD #1 left thoracoscopic wedge resection upper lobe lung. Postoperative extensive subcutaneous emphysema, unexpected but common outcome from lung surgery especially with use of BiPAP The patient's currently laying in bed in the intensive care unit in no acute distress. Does complain of postsurgical pain, denies shortness of breath. He was very slow to wake up and respond last night after surgery, and was placed in the intensive care unit for better monitoring. He was placed on BiPAP, however he developed extensive subcutaneous emphysema and was transitioned to nasal cannula. This morning he is more alert and somewhat cooperative with his care. He refuses to eat because he does not like the food, only wanning ice chips. He was initially refusing to use his incentive spirometry and cough this morning, however he is currently using his incentive spirometry without encouragement. Family at the bedside and updated. Objective - Vital Signs Vital signs: Vital Signs Temp 98.5 F 12/28/18 08:00 Pulse 90 12/28/18 09:00 Resp 11 L 12/28/18 09:00 BP 102/61 12/28/18 09:00 Pulse Ox 92 L 12/28/18 09:00 Intake & Output 12/27/18 12/28/18 12/28/18 18:59 06:59 18:59 Intake Total 1750 750 200 Output Total 25 1390 155 Balance 1725 -640 45 Weight 74.1 kg 79.3 kg Intake: IV 1600 Intake, IV Titration 150 750 200 Amount ACETAMINOPHEN IV (For NPO 200 ) 1,000 mg In Empty Bag 1 bag @ 400 mls/hr IVPB Q6HR PRN Rx#:[id number] Lactated Ringers 1,000 ml 100 @ 20 mls/hr IV .Q24H DAMIAN Rx#:[id number] Sodium Chloride 0.9% 1, 100 350 200 000 ml @ 50 mls/hr IV . Q20H DAMIAN Rx#:[id number] ceFAZolin 2 gm In Sodium 50 100 Chloride 0.9% 50 ml @ 100 mls/hr IVPB Q8H DAMIAN Rx#: [id number] Output: Drainage 50 Left Chest 50 Urine 1340 155 Estimated Blood Loss 25 ABP, PAP, CO, CI - Last Documented Arterial Blood Pressure 117/56 - Constitutional General appearance: Present: cooperative, no acute distress - Respiratory Details: Lungs sounds diminished bilaterally. Respirations even, nonlabored. Weak cough. Only able to achieve 500-750 mL on his incentive spirometry. Left pleural chest tube present, placed to waterseal this morning, 50 mL of serosanguineous drainage overnight, to 220 mL since surgery, no air leak present. - Cardiovascular Details: S1, S2 present. Regular rate and rhythm, sinus rhythm with occasional PVCs on telemetry. Palpable peripheral pulses bilaterally. No edema present. No calf pain or tenderness noted. SCDs present. - Gastrointestinal Gastrointestinal Comment(s): Abdomen soft, nontender, nondistended. Active bowel sounds present 4 quadrants. Tolerating ice chips. - Genitourinary Genitourinary Comment(s): Aguirre present draining clear, yellow urine. Output 25-40 mL/h overnight, 1 L diuresed after IV Lasix given yesterday. - Integumentary Integumentary Comment(s): Skin is warm and dry with evidence of good perfusion. - Neurologic Neurologic: Present: CNII-XII intact - Musculoskeletal Musculoskeletal: Present: strength equal bilaterally - Psychiatric Psychiatric Comment(s): Alert and oriented to person place and time, but is forgetful at times Psychiatric: Present: A&O x's 3, appropriate affect, intact judgment & insight - Allied health notes Allied health notes reviewed: nursing - Labs CBC & Chem 7: 12/28/18 04:50 12/28/18 04:50 Labs: Abnormal Lab Results - Last 24 Hours (Table) 12/27/18 12/27/18 12/27/18 Range/Units 13:10 15:24 16:12 WBC (3.8-10.6) k/uL RBC (4.30-5.90) m/uL Hgb (13.0-17.5) gm/dL Hct (39.0-53.0) % Neutrophils # (1.3-7.7) k/uL ABG pH (7.35-7.45) ABG pCO2 (35-45) mmHg ABG pO2 (83-108) mmHg ABG Total CO2 (19-24) mmol/L ABG O2 Saturation (94-97) % Potassium (3.5-5.1) mmol/L Chloride (98-107) mmol/L Carbon Dioxide (22-30) mmol/L BUN (9-20) mg/dL Creatinine (0.66-1.25) mg/dL Glucose (74-99) mg/dL POC Glucose (mg/dL) 249 H 298 H 271 H (75-99) mg/dL Calcium (8.4-10.2) mg/dL 12/27/18 12/27/18 12/27/18 Range/Units 17:32 20:25 20:28 WBC (3.8-10.6) k/uL RBC (4.30-5.90) m/uL Hgb (13.0-17.5) gm/dL Hct (39.0-53.0) % Neutrophils # (1.3-7.7) k/uL ABG pH 7.22 L (7.35-7.45) ABG pCO2 60 H (35-45) mmHg ABG pO2 170 H (83-108) mmHg ABG Total CO2 27 H (19-24) mmol/L ABG O2 Saturation 99.3 H (94-97) % Potassium (3.5-5.1) mmol/L Chloride (98-107) mmol/L Carbon Dioxide (22-30) mmol/L BUN (9-20) mg/dL Creatinine (0.66-1.25) mg/dL Glucose (74-99) mg/dL POC Glucose (mg/dL) 226 H 196 H (75-99) mg/dL Calcium (8.4-10.2) mg/dL 12/27/18 12/27/18 12/27/18 Range/Units 20:46 21:46 22:40 WBC 15.6 H (3.8-10.6) k/uL RBC 4.01 L (4.30-5.90) m/uL Hgb (13.0-17.5) gm/dL Hct 37.8 L (39.0-53.0) % Neutrophils # 13.8 H (1.3-7.7) k/uL ABG pH 7.25 L 7.29 L (7.35-7.45) ABG pCO2 57 H 49 H (35-45) mmHg ABG pO2 68 L (83-108) mmHg ABG Total CO2 27 H 25 H (19-24) mmol/L ABG O2 Saturation (94-97) % Potassium (3.5-5.1) mmol/L Chloride (98-107) mmol/L Carbon Dioxide (22-30) mmol/L BUN (9-20) mg/dL Creatinine (0.66-1.25) mg/dL Glucose (74-99) mg/dL POC Glucose (mg/dL) (75-99) mg/dL Calcium (8.4-10.2) mg/dL 12/27/18 12/28/18 12/28/18 Range/Units 22:40 00:11 01:15 WBC (3.8-10.6) k/uL RBC (4.30-5.90) m/uL Hgb (13.0-17.5) gm/dL Hct (39.0-53.0) % Neutrophils # (1.3-7.7) k/uL ABG pH (7.35-7.45) ABG pCO2 (35-45) mmHg ABG pO2 80 L (83-108) mmHg ABG Total CO2 25 H (19-24) mmol/L ABG O2 Saturation (94-97) % Potassium 5.6 H (3.5-5.1) mmol/L Chloride 109 H (98-107) mmol/L Carbon Dioxide 21 L (22-30) mmol/L BUN 34 H (9-20) mg/dL Creatinine 1.68 H (0.66-1.25) mg/dL Glucose 179 H (74-99) mg/dL POC Glucose (mg/dL) 169 H (75-99) mg/dL Calcium 7.9 L (8.4-10.2) mg/dL 12/28/18 12/28/18 12/28/18 Range/Units 02:33 04:50 04:50 WBC 11.7 H (3.8-10.6) k/uL RBC 3.73 L (4.30-5.90) m/uL Hgb 12.4 L (13.0-17.5) gm/dL Hct 34.8 L (39.0-53.0) % Neutrophils # 9.3 H (1.3-7.7) k/uL ABG pH (7.35-7.45) ABG pCO2 (35-45) mmHg ABG pO2 (83-108) mmHg ABG Total CO2 (19-24) mmol/L ABG O2 Saturation (94-97) % Potassium (3.5-5.1) mmol/L Chloride 109 H (98-107) mmol/L Carbon Dioxide (22-30) mmol/L BUN 38 H (9-20) mg/dL Creatinine 1.87 H (0.66-1.25) mg/dL Glucose 181 H (74-99) mg/dL POC Glucose (mg/dL) 168 H (75-99) mg/dL Calcium 7.9 L (8.4-10.2) mg/dL 12/28/18 Range/Units 06:50 WBC (3.8-10.6) k/uL RBC (4.30-5.90) m/uL Hgb (13.0-17.5) gm/dL Hct (39.0-53.0) % Neutrophils # (1.3-7.7) k/uL ABG pH (7.35-7.45) ABG pCO2 (35-45) mmHg ABG pO2 (83-108) mmHg ABG Total CO2 (19-24) mmol/L ABG O2 Saturation (94-97) % Potassium (3.5-5.1) mmol/L Chloride (98-107) mmol/L Carbon Dioxide (22-30) mmol/L BUN (9-20) mg/dL Creatinine (0.66-1.25) mg/dL Glucose (74-99) mg/dL POC Glucose (mg/dL) 172 H (75-99) mg/dL Calcium (8.4-10.2) mg/dL - Imaging and Cardiology Chest x-ray: report reviewed, image reviewed Assessment and Plan Assessment: 1. 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 History of interstitial lung disease, COPD 3. Previous tobacco dependence 4. Sleep apnea syndrome without CPAP use 5. Chronic kidney disease 6. Hypothyroidism 7. Diabetes 8. GERD 9. Postoperative extensive subcutaneous emphysema Plan: 1. Chest tube placed to waterseal this morning. We will repeat chest x-ray around noon, if no pneumothorax and patient continues to have no air leak will consider discontinuing chest tube 2. Wean O2 as tolerated. Encourage incentive spirometry 10 times every hour while awake 3. Bronchodilators per pulmonology 4. Pain control with current medication regimen. No Toradol secondary to kidney disease 5. GI/DVT prophylaxis 6. Will monitor daily x-rays 7. Increase activity, out of bed to chair 8. Discontinue arterial line 9. More recommendations to follow
[2018-12-28 11:48] LABS: Glucose,Whole Blood 123 mg/dL (75-99)
[2018-12-28] MEDS: ACETAMINOPHEN TAB 500 MG TAB PO PRN (12:38)
--- NOTE | 2018-12-28 13:25 | XR ---
EXAMINATION TYPE: XR chest 1V portable DATE OF EXAM: 12/28/2018 COMPARISON: Prior chest x-ray 12/29/2018 at earlier time HISTORY: Chest tube, pneumothorax TECHNIQUE: Single frontal view of the chest is obtained. FINDINGS: There is no significant change. IMPRESSION: Chest tube with extensive subcutaneous emphysema, low lung volumes. No sizable pneumotho rax is evident. Suspect underlying interstitial lung disease.
[2018-12-28] MEDS: SODIUM CHLORIDE 0.9% 1,000 ML IV SCH (13:30)
[2018-12-28] MEDS ORDERED: HYDROmorphone 0.5 MG/0.5 ML SYRINGE IVP STA (14:22)
[2018-12-28 17:00] LABS: Glucose,Whole Blood 203 mg/dL (75-99)
[2018-12-28 20:07] LABS: Glucose,Whole Blood 167 mg/dL (75-99)
[2018-12-28] MEDS: INSULIN DETEMIR (LEVEMIR) 100 UNIT/ML SYR SQ SCH (20:14)
[2018-12-28] MEDS: HYDROcodone/APAP 5-325MG 1 EACH TAB PO PRN (23:58)
[2018-12-29 04:44] LABS: HCT 32.8 % (39.0-53.0); HGB 11.6 gm/dL (13.0-17.5); MCH 33.2 pg (25.0-35.0); MCHC 35.4 g/dL (31.0-37.0); MCV 93.7 fL (80.0-100.0); Mean Platelet Volume 5.8; Platelet Count 147 k/uL (150-450); RDW 13.4 % (11.5-15.5); WBC 9.9 k/uL (3.8-10.6)
[2018-12-29 04:56] LABS: Calcium 8.3 mg/dL (8.4-10.2); Potassium 4.3 mmol/L (3.5-5.1)
[2018-12-29] MEDS: LEVOTHYROXINE 50 MCG TAB PO SCH (06:32)
[2018-12-29 06:34] LABS: Glucose,Whole Blood 101 mg/dL (75-99)
--- NOTE | 2018-12-29 06:56 | XR ---
EXAMINATION TYPE: XR chest 1V portable DATE OF EXAM: 12/29/2018 COMPARISON: Yesterday HISTORY: Pneumothorax TECHNIQUE: Single frontal view of the chest is obtained. FINDINGS: There is extensive soft tissue air over the left and right chest wall. I see no pneumothor ax. There is some coarse interstitial infiltrate in both lungs. There is poor inspiration. Trachea is midline. There are chest leads. IMPRESSION: Pulmonary interstitial fibrosis unchanged. Subcutaneous emphysema over the entire chest unchanged. No pneumothorax.
[2018-12-29] MEDS: INSULIN ASPART (NovoLOG) 100 UNIT/ML VIAL SQ SCH ×7 (06:59→21:26)
[2018-12-29] MEDS: FORMOTEROL FUMARATE 20 MCG/2 ML NEBU INHALATION SCH ×2 (07:56→19:11)
[2018-12-29] MEDS: IPRATROPIUM-ALBUTEROL 3 ML NEB IH SCH ×4 (07:56→19:11)
[2018-12-29] MEDS: BUDESONIDE 1 MG/2 ML NEBU INHALATION SCH ×2 (07:56→19:11)
[2018-12-29] MEDS: HEPARIN SODIUM,PORCINE 5,000 UNIT/ML 1 ML VIAL SQ SCH ×2 (07:58→16:31)
[2018-12-29] MEDS: PANTOPRAZOLE 40 MG TABLET PO SCH (07:58)
[2018-12-29] MEDS: TAMSULOSIN 0.4 MG CAP.ER.24H PO SCH (07:58)
[2018-12-29] MEDS: ESCITALOPRAM 5 MG TAB PO SCH (07:59)
[2018-12-29] MEDS: MULTIVITAMINS, THERA 1 EACH TAB PO SCH (07:59)
[2018-12-29] MEDS: HYDROcodone/APAP 5-325MG 1 EACH TAB PO PRN ×3 (09:00→14:25)
--- NOTE | 2018-12-29 09:02 | P.PN ---
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 Previous medical history of interstitial lung disease, COPD, previous tobacco dependence, sleep apnea syn drome without CPAP use, chronic kidney disease, hypothyroidism, diabetes, GERD. POD #2 left thoracoscopic wedge resection upper lobe lung. Postoperative extensive subcutaneous emphysema, unexpected but common outcome from lung surgery especially with use of BiPAP The patient's currently sitting up in bed in the intensive care unit in no acute distress eating breakfast. Does complain of postsurgical pain, denies shortness of breath. Chest tube was discontinued yesterday without incident, subcutaneous emphysema remains but appears to be slightly less than yesterday. Patient was ambulatory in the hallway last night with assistance. Aguirre catheter discontinued this morning, due to void. No new concerns Objective - Vital Signs Vital signs: Vital Signs Temp 98.1 F 12/29/18 04:00 Pulse 86 12/29/18 08:18 Resp 23 12/29/18 08:00 BP 115/52 12/29/18 08:00 Pulse Ox 98 12/29/18 08:00 Intake & Output 12/28/18 12/29/18 12/29/18 18:59 06:59 18:59 Intake Total 360 360 280 Output Total 535 330 Balance -175 30 280 Weight 77 kg Intake: IV 100 240 40 Sodium Chloride 0.9% 1, 100 240 40 000 ml @ 20 mls/hr IV . Q24H DAMIAN Rx#:[id number] Intake, IV Titration 260 Amount Sodium Chloride 0.9% 1, 260 000 ml @ 50 mls/hr IV . Q20H DAMIAN Rx#:[id number] Oral 120 240 Output: Urine 535 330 Other: Voiding Method Indwelling Catheter Urinal ABP, PAP, CO, CI - Last Documented Arterial Blood Pressure 117/56 - Constitutional General appearance: Present: cooperative, no acute distress - Respiratory Details: Lungs sounds diminished bilaterally. Respirations even, nonlabored. Currently on 5 L nasal cannula with oxygen saturation 96%. Weak cough. Able to achieve 1000 mL on his incentive spirometry. Subcutaneous emphysema present to the entire chest, appears slightly less than yesterday. - Cardiovascular Details: S1, S2 present. Regular rate and rhythm, sinus rhythm with occasional PVCs on t elemetry. Palpable peripheral pulses bilaterally. No edema present. No calf pain or tenderness noted. SCDs present. - Gastrointestinal Gastrointestinal Comment(s): Abdomen soft, nontender, nondistended. Active bowel sounds present 4 quadrants. Tolerating diet. - Genitourinary Genitourinary Comment(s): Aguirre discontinued this morning, due to void. Urine output was 40 mL/h - Integumentary Integumentary Comment(s): Skin is warm and dry with evidence of good perfusion. - Neurologic Neurologic: Present: CNII-XII intact - Musculoskeletal Musculoskeletal: Present: gait normal, strength equal bilaterally - Psychiatric Psychiatric: Present: A&O x's 3, appropriate affect - Allied health notes Allied health notes reviewed: nursing - Labs CBC & Chem 7: 12/29/18 04:34 12/29/18 04:34 Labs: Abnormal Lab Results - Last 24 Hours (Table) 12/28/18 12/28/18 12/28/18 Range/Units 11:45 16:59 20:04 RBC (4.30-5.90) m/uL Hgb (13.0-17.5) gm/dL Hct (39.0-53.0) % Plt Count (150-450) k/uL Chloride (98-107) mmol/L BUN (9-20) mg/dL Creatinine (0.66-1.25) mg/dL Glucose (74-99) mg/dL POC Glucose (mg/dL) 123 H 203 H 167 H (75-99) mg/dL Calcium (8.4-10.2) mg/dL 12/29/18 12/29/18 12/29/18 Range/Units 04:34 04:34 06:32 RBC 3.50 L (4.30-5.90) m/uL Hgb 11.6 L (13.0-17.5) gm/dL Hct 32.8 L (39.0-53.0) % Plt Count 147 L (150-450) k/uL Chloride 108 H (98-107) mmol/L BUN 37 H (9-20) mg/dL Creatinine 1.43 H (0.66-1.25) mg/dL Glucose 104 H (74-99) mg/dL POC Glucose (mg/dL) 101 H (75-99) mg/dL Calcium 8.3 L (8.4-10.2) mg/dL - Imaging and Cardiology Chest x-ray: report reviewed, image reviewed Assessment and Plan Assessment: 1. 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 History of interstitial lung disease, COPD 3. Previous tobacco dependence 4. Sleep apnea syndrome without CPAP use 5. Chronic kidney disease 6. Hypothyroidism 7. Diabetes 8. GERD 9. Postoperative extensive subcutaneous emphysema Plan: 1. Will continue to monitor subcutaneous emphysema. 2. Wean O2 as tolerated. Encourage incentive spirometry 10 times every hour while awake 3. Bronchodilators per pulmonology 4. Pain control with current medication regimen, tramadol switched to Orick which appears to be keeping patient better pain control. No Toradol secondary to kidney disease 5. GI/DVT prophylaxis 6. Will monitor daily x-rays 7. Increase activity, ambulate in hallway 8. Aguirre catheter discontinued. Flomax started. May bladder scan every 6 hours and straight cath for residual greater than [address] transfer orders for 3 cells cardiac stepdown unit, May transfer from bed available 10. More recommendations to follow Time with Patient: Greater than 30
--- NOTE | 2018-12-29 11:34 | PN ---
PROGRESS NOTE PULMONARY/CRITICAL CARE PROGRESS NOTE: DATE OF SERVICE: 12/29/2018 This is a patient who is postop day #2, status post video-assisted thoracoscopic wedge resection of a solitary pulmonary nodule, left upper lobe. Dr. Andrew and I did electromagnetic navigational bronchoscopy on this patient a while back and we were able to get a diagnosis of squamous cell carcinoma. His PET scan was only positive in this area. He appears not to have any distant disease. Anyway, the patient had successful surgery. He is in the ICU. He can be moved out of the ICU today. He did have some subcutaneous emphysema, but otherwise is doing reasonably well. In addition, he has a history of COPD, interstitial lung disease, diabetes mellitus, hypothyroidism, GERD, and severe sleep apnea syndrome. He is resting comfortably. He is on O2 of 4 L. He is getting saline at KVO. Current vital signs are reviewed, temperature is 98.1, heart rate 86, respiratory rate 23, blood pressure 115/52, mean 73, 5 L saturation 98%. Appears in no acute distress. HEENT: Examination is grossly unremarkable. Mucous membranes are moist. No oral lesions. NECK: Supple. Full range of motion. No adenopathy. Neck veins are flat. CARDIOVASCULAR: Examination reveals regular rhythm and rate. Heart rate in the mid 80s. S1, S2 normal. Heart sounds are distant. LUNGS: Reveal diffuse bilateral rhonchi. No wheezes. Breath sounds equal. He does not take deep breaths. On palpation of the neck, shoulders, and chest, there is a crunch from subcutaneous emphysema. ABDOMEN: Soft, bowel sounds are heard. EXTREMITIES: Intact. No cyanosis, clubbing, or edema. SKIN: Without rash. NEUROLOGIC: Examination is brief but nonfocal. White count 9.9, hemoglobin 11.6, hematocrit 32.8, platelet count 147,000, sodium 138, potassium 4.3, chloride is 108, CO2 is 24, anion gap is 6. BUN and creatinine were 37 and 1.43. Calcium 8.3. Chest x-ray shows continuing subcutaneous emphysema. No pneumothorax. Interstitial changes are also noted, but those are chronic and well known. Microbiology is negative or pending. Medications are reviewed. ASSESSMENT: 1. Postoperative day #2, Status post video-assisted thoracoscopic wedge resection of a solitary pulmonary nodule, left upper lobe. 2. Status post electromagnetic navigational bronchoscopy, with sampling of the lesion left upper lobe, which revealed squamous cell carcinoma. 3. History of chronic obstructive pulmonary disease. 4. History of interstitial lung disease. 5. Diabetes mellitus. 6. Hypothyroidism. 7. Gastroesophageal reflux disease. 8. Severe sleep apnea syndrome. PLAN: The patient seems to be doing better. He is currently on 4 L nasal cannula. He is getting a 0.9 IV at KVO. We encourage him to deep breathe, cough, clear secretions and use the incentive spirometer. He does have bilateral subcutaneous emphysema without any pneumothorax. Additional recommendations and suggestions are forthcoming. Prognosis is guarded. MMODL / IJN: [id number] /
[2018-12-29 12:11] LABS: Glucose,Whole Blood 158 mg/dL (75-99)
[2018-12-29] MEDS: SODIUM CHLORIDE 0.9% 1,000 ML IV SCH (14:21)
[2018-12-29 16:43] LABS: Glucose,Whole Blood 87 mg/dL (75-99)
[2018-12-29] MEDS: ACETAMINOPHEN TAB 500 MG TAB PO PRN (17:08)
[2018-12-29 21:25] LABS: Glucose,Whole Blood 239 mg/dL (75-99)
[2018-12-29] MEDS: INSULIN DETEMIR (LEVEMIR) 100 UNIT/ML SYR SQ SCH (21:26)
[2018-12-30] MEDS: HEPARIN SODIUM,PORCINE 5,000 UNIT/ML 1 ML VIAL SQ SCH ×4 (00:30→23:47)
[2018-12-30] MEDS: HYDROcodone/APAP 5-325MG 1 EACH TAB PO PRN ×3 (00:34→22:12)
[2018-12-30 05:14] LABS: HCT 30.9 % (39.0-53.0); HGB 10.9 gm/dL (13.0-17.5); MCH 33.3 pg (25.0-35.0); MCHC 35.2 g/dL (31.0-37.0); MCV 94.8 fL (80.0-100.0); Mean Platelet Volume 6.1; Platelet Count 150 k/uL (150-450); RBC 3.26 m/uL (4.30-5.90); RDW 13.3 % (11.5-15.5); WBC 7.6 k/uL (3.8-10.6)
[2018-12-30 05:39] LABS: Calcium 8.4 mg/dL (8.4-10.2); Potassium 4.4 mmol/L (3.5-5.1)
[2018-12-30 06:30] LABS: Glucose,Whole Blood 169 mg/dL (75-99)
[2018-12-30] MEDS: INSULIN ASPART (NovoLOG) 100 UNIT/ML VIAL SQ SCH ×7 (06:45→22:10)
[2018-12-30] MEDS: LEVOTHYROXINE 50 MCG TAB PO SCH (06:45)
[2018-12-30] MEDS: TAMSULOSIN 0.4 MG CAP.ER.24H PO SCH (08:07)
[2018-12-30] MEDS: MULTIVITAMINS, THERA 1 EACH TAB PO SCH (08:07)
[2018-12-30] MEDS: PANTOPRAZOLE 40 MG TABLET PO SCH (08:07)
[2018-12-30] MEDS: ESCITALOPRAM 5 MG TAB PO SCH (08:07)
--- NOTE | 2018-12-30 08:16 | PN ---
PROGRESS NOTE DATE OF SERVICE: 12/30/2018 This is a patient who is postop day #3, status post video-assisted thoracoscopic wedge resection of a solitary pulmonary nodule, left upper lobe. The patient underwent electromagnetic navigational bronchoscopy a couple weeks back and we were able to make a diagnosis of squamous cell carcinoma. His PET scan was only positive for the lesion that is described above. Hence, we thought he had early stage disease and we sent him to surgery for consideration of a resection. The patient underwent a wedge resection by Dr. Loredo 3 days ago. He is currently doing relatively well. We had offered him chemoradiation because he was sort of nervous to have surgery, but in the end he chose surgery. The patient is stable. He is on 3 L nasal cannula. Not receiving any IV fluids. The patient will be transferred to the general medical floor. Chest tubes are out. Other than that, he is doing reasonably well. He does have a history of COPD, interstitial lung disease, diabetes, hypothyroidism, GERD, and sleep apnea syndrome. He is currently resting comfortably without complaints. He is eating his breakfast. States pain is much better controlled. PHYSICAL EXAMINATION: VITAL SIGNS: Current vital signs good temperature 98.1, heart rate 83, respiratory rate 21, blood pressure 130/64, 3 L saturation 97%. Appears in no acute distress. HEENT examination is grossly unremarkable. Mucous membranes are moist. No oral lesions. NECK: Supple. Full range of motion. No adenopathy. Some subcutaneous emphysema remains. CARDIOVASCULAR examination reveals regular rhythm and rate. S1, S2 normal. No S3, S4, or murmur. LUNGS: Reveal mostly clear breath sounds. A few scattered rhonchi. No wheezes. ABDOMEN: Soft. Bowel sounds are heard. EXTREMITIES are intact. No cyanosis, clubbing, or edema. SKIN: Without rash. NEUROLOGIC: Examination is brief but nonfocal. White count 7.6, hemoglobin 10.9, hematocrit 30.9, platelet count 150,000. Sodium 137, potassium 4.4, chloride 105, CO2 is 26, anion gap is 6. BUN and creatinine were 33 and 1.29. Calcium 8.4. The chest x-ray is reviewed. I do not see a chest x-ray from today. His chest x-ray from yesterday shows some interstitial lung disease and subcutaneous emphysema. Medications are reviewed. ASSESSMENT: 1. Postoperative day #3, status post video-assisted thoracoscopic wedge resection of a solitary pulmonary nodule, left upper lobe, which on electromagnetic navigational bronchoscopy was deemed to be squamous cell carcinoma. 2. PET scan, only positive for the lesion described above. 3. History of chronic obstructive pulmonary disease. 4. History of interstitial lung disease. 5. Diabetes mellitus. 6. Hypothyroidism. 7. Gastroesophageal reflux disease. 8. Severe sleep apnea syndrome. PLAN: Currently, the patient is doing well. We recommend deep breathing, coughing, clearing of secretions. We recommend hourly use of the incentive spirometer. He should have a chest x-ray today. Medications are reviewed. Labs are reviewed. Prognosis is guarded. He can be discharged whenever surgery says that he could be discharged. From my perspective and from the pulmonary perspective, he is improving. MMODL / IJN: [id number] /
[2018-12-30] MEDS: FORMOTEROL FUMARATE 20 MCG/2 ML NEBU INHALATION SCH ×2 (09:00→20:33)
[2018-12-30] MEDS: IPRATROPIUM-ALBUTEROL 3 ML NEB IH SCH ×4 (09:00→20:33)
[2018-12-30] MEDS: BUDESONIDE 1 MG/2 ML NEBU INHALATION SCH ×2 (09:00→20:33)
--- NOTE | 2018-12-30 09:13 | XR ---
EXAMINATION TYPE: XR chest 2V DATE OF EXAM: 12/30/2018 COMPARISON: 12/29/2018 HISTORY: 88-year-old male subcutaneous emphysema TECHNIQUE: PA and lateral views FINDINGS: Heart upper limits of normal size. Diffuse interstitial densities persist. Focal left midlung opacity . Extensive subcutaneous emphysema along both sides of the chest and base of the neck persists. No ap preciable pneumothorax IMPRESSION: 1. Persistent subcutaneous emphysema on both sides of the chest and base of the neck. 2. Diffuse interstitial lung disease persists. 3. Focal left midlung opacity is increasing, atelectasis versus developing infiltrate.
--- NOTE | 2018-12-30 09:28 | P.PN ---
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 Previous medical history of interstitial lung disease, COPD, previous tobacco dependence, sleep apnea syn drome without CPAP use, chronic kidney disease, hypothyroidism, diabetes, GERD. POD #3 left thoracoscopic wedge resection upper lobe lung. Postoperative extensive subcutaneous emphysema, unexpected but common outcome from lung surgery especially with use of BiPAP The patient's currently sitting up in a chair on the MedSurg unit, transferred out of ICU this morning. States pain is currently controlled, denies shortness of breath. Subcutaneous emphysema is less every day. Patient was ambulatory in the hallway yesterday. No new concerns Objective - Vital Signs Vital signs: Vital Signs Temp 97.8 F 12/30/18 08:00 Pulse 82 12/30/18 08:00 Resp 16 12/30/18 08:00 BP 107/62 12/30/18 08:00 Pulse Ox 97 12/30/18 04:00 Intake & Output 12/29/18 12/30/18 12/30/18 18:59 06:59 18:59 Intake Total 340 240 Output Total 60 350 Balance 280 -110 Weight 77.4 kg Intake: IV 100 0 Sodium Chloride 0.9% 1, 100 0 000 ml @ 20 mls/hr IV . Q24H [facility]IAN Rx#:[id number] Oral 240 240 Output: Urine 60 350 Other: Voiding Method Urinal Urinal # Voids 1 ABP, PAP, CO, CI - Last Documented Arterial Blood Pressure 117/56 - Constitutional General appearance: Present: cooperative, no acute distress - Respiratory Details: Lungs sounds diminished bilaterally. Respirations even, nonlabored. Currently on 3 L nasal cannula with oxygen saturation 91%. Weak cough. Able to achieve 750-1000 mL on his incentive spirometry. Subcutaneous emphysema present to the entire chest, appears less than yesterday. - Cardiovascular Details: S1, S2 present. Regular rate and rhythm. Palpable peripheral pulses bilaterally. No edema present. No calf pain or tenderness noted. SCDs present. - Gastrointestinal Gastrointestinal Comment(s): Abdomen soft, nontender, nondistended. Active bowel sounds present 4 quadrants. Tolerating diet. - Genitourinary Genitourinary Comment(s): Continues to void clear, yellow urine. - Integumentary Integumentary Comment(s): Skin is warm and dry with evidence of good perfusion. - Neurologic Neurologic: Present: CNII-XII intact - Musculoskeletal Musculoskeletal: Present: gait normal, strength equal bilaterally - Psychiatric Psychiatric: Present: A&O x's 3, appropriate affect - Allied health notes Allied health notes reviewed: nursing - Labs CBC & Chem 7: 12/30/18 04:47 12/30/18 04:47 Labs: Abnormal Lab Results - Last 24 Hours (Table) 12/29/18 12/29/18 12/30/18 Range/Units 11:50 21:24 04:47 RBC 3.26 L (4.30-5.90) m/uL Hgb 10.9 L (13.0-17.5) gm/dL Hct 30.9 L (39.0-53.0) % BUN (9-20) mg/dL Creatinine (0.66-1.25) mg/dL Glucose (74-99) mg/dL POC Glucose (mg/dL) 158 H 239 H (75-99) mg/dL 12/30/18 12/30/18 Range/Units 04:47 06:28 RBC (4.30-5.90) m/uL Hgb (13.0-17.5) gm/dL Hct (39.0-53.0) % BUN 33 H (9-20) mg/dL Creatinine 1.29 H (0.66-1.25) mg/dL Glucose 155 H (74-99) mg/dL POC Glucose (mg/dL) 169 H (75-99) mg/dL - Imaging and Cardiology Chest x-ray: report reviewed, image reviewed Assessment and Plan Assessment: 1. 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 History of interstitial lung disease, COPD 3. Previous tobacco dependence 4. Sleep apnea syndrome without CPAP use 5. Chronic kidney disease 6. Hypothyroidism 7. Diabetes 8. GERD 9. Postoperative extensive subcutaneous emphysema Plan: 1. Will continue to monitor subcutaneous emphysema. 2. Wean O2 as tolerated. Encourage incentive spirometry 10 times every hour while awake 3. Bronchodilators per pulmonology 4. Pain control with current medication regimen. No Toradol secondary to kidney disease 5. GI/DVT prophylaxis 6. Will monitor daily x-rays 7. Increase activity, ambulate in hallway 8. Discharge planning in progress. Anticipate discharge to home in the next 24 hours 9. More recommendations to follow Time with Patient: Greater than 30
[2018-12-30 11:40] LABS: Glucose,Whole Blood 175 mg/dL (75-99)
[2018-12-30] MEDS: ACETAMINOPHEN TAB 500 MG TAB PO PRN (15:48)
[2018-12-30 17:02] LABS: Glucose,Whole Blood 159 mg/dL (75-99)
[2018-12-30] MEDS: INSULIN DETEMIR (LEVEMIR) 100 UNIT/ML SYR SQ SCH (22:08)
[2018-12-30 22:28] LABS: Glucose,Whole Blood 163 mg/dL (75-99)
[2018-12-31] MEDS: LEVOTHYROXINE 50 MCG TAB PO SCH (05:48)
[2018-12-31 07:00] LABS: Glucose,Whole Blood 112 mg/dL (75-99)
[2018-12-31] MEDS: FORMOTEROL FUMARATE 20 MCG/2 ML NEBU INHALATION SCH (07:11)
[2018-12-31] MEDS: BUDESONIDE 1 MG/2 ML NEBU INHALATION SCH (07:11)
[2018-12-31] MEDS: IPRATROPIUM-ALBUTEROL 3 ML NEB IH SCH ×2 (07:11→11:10)
[2018-12-31] MEDS: INSULIN ASPART (NovoLOG) 100 UNIT/ML VIAL SQ SCH ×4 (08:01→12:57)
--- NOTE | 2018-12-31 08:28 | XR ---
EXAMINATION TYPE: XR chest 2V DATE OF EXAM: 12/31/2018 COMPARISON: Prior chest x-ray 12/30/2018 HISTORY: Abnormal chest x-ray, subcutaneous emphysema TECHNIQUE: Frontal and lateral views of the chest are obtained. FINDINGS: Extensive subcutaneous emphysema is again seen but may have improved somewhat in the inter ramírez. Bilateral interstitial changes are noted. Heart is stable. Parenchymal changes show similar appe arance, perihilar increased density, left upper lobe increased density again noted. No evident pneumo thorax or pleural effusion. IMPRESSION: There may be some slight improvement in patient's subcutaneous emphysema. Interstitial l ángel disease. Difficult to exclude underlying pneumonia, atelectasis, post procedural change
[2018-12-31 08:36] VITALS: BP 119/63; RESP 17; TEMP 98.1
--- NOTE | 2018-12-31 08:52 | P.PN ---
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 Previous medical history of interstitial lung disease, COPD, previous tobacco dependence, sleep apnea syn drome without CPAP use, chronic kidney disease, hypothyroidism, diabetes, GERD. POD #4 left thoracoscopic wedge resection upper lobe lung. Postoperative extensive subcutaneous emphysema, unexpected but common outcome from lung surgery especially with use of BiPAP The patient's currently laying in bed on the MedSurg unit in no acute distress. States pain is currently controlled, denies shortness of breath. Subcutaneous emphysema is less every day. Patient has been ambulatory in the hallway. No new concerns Objective - Vital Signs Vital signs: Vital Signs Temp 98.1 F 12/31/18 07:00 Pulse 84 12/31/18 07:35 Resp 17 12/31/18 07:00 BP 119/63 12/31/18 07:00 Pulse Ox 96 12/31/18 07:00 Intake & Output 12/30/18 12/31/18 12/31/18 18:59 06:59 18:59 Intake Total 218 Balance 218 Intake: Oral 218 Other: Voiding Method Urinal Urinal # Voids 1 2 ABP, PAP, CO, CI - Last Documented Arterial Blood Pressure 117/56 - Constitutional General appearance: Present: cooperative, no acute distress - Respiratory Details: Lungs sounds diminished bilaterally. Respirations even, nonlabored. Currently on 2 L nasal cannula with oxygen saturation 96%. Weak cough. Able to achieve 750-1000 mL on his incentive spirometry. Subcutaneous emphysema present to the entire chest, appears less everyday. - Cardiovascular Details: S1, S2 present. Regular rate and rhythm. Palpable peripheral pulses bilaterally. No edema present. No calf pain or tenderness noted. SCDs present. - Gastrointestinal Gastrointestinal Comment(s): Abdomen soft, nontender, nondistended. Active bowel sounds present 4 quadrants. Tolerating diet. - Genitourinary Genitourinary Comment(s): Continues to void clear, yellow urine. - Integumentary Integumentary Comment(s): Skin is warm and dry with evidence of good perfusion. - Neurologic Neurologic: Present: CNII-XII intact - Musculoskeletal Musculoskeletal: Present: gait normal, strength equal bilaterally - Psychiatric Psychiatric: Present: A&O x's 3, appropriate affect, intact judgment & insight - Allied health notes Allied health notes reviewed: nursing - Labs CBC & Chem 7: 12/30/18 04:47 12/30/18 04:47 Labs: Abnormal Lab Results - Last 24 Hours (Table) 12/30/18 12/30/18 12/30/18 Range/Units 11:28 16:31 22:01 POC Glucose (mg/dL) 175 H 159 H 163 H (75-99) mg/dL 12/31/18 Range/Units 06:58 POC Glucose (mg/dL) 112 H (75-99) mg/dL - Imaging and Cardiology Chest x-ray: report reviewed, image reviewed Assessment and Plan Assessment: 1. 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 History of interstitial lung disease, COPD 3. Previous tobacco dependence 4. Sleep apnea syndrome without CPAP use 5. Chronic kidney disease 6. Hypothyroidism 7. Diabetes 8. GERD 9. Postoperative extensive subcutaneous emphysema Plan: 1. Will continue to monitor subcutaneous emphysema. 2. Wean O2 as tolerated. Encourage incentive spirometry 10 times every hour while awake. Will assess need for home O2 3. Bronchodilators per pulmonology 4. Pain control with current medication regimen. No Toradol secondary to kidney disease 5. GI/DVT prophylaxis 6. Will monitor daily x-rays 7. Increase activity, ambulate in hallway 8. Discharge planning in progress. Anticipate discharge to home today 9. More recommendations to follow Time with Patient: Greater than 30
[2018-12-31] MEDS: ESCITALOPRAM 5 MG TAB PO SCH (09:34)
[2018-12-31] MEDS: TAMSULOSIN 0.4 MG CAP.ER.24H PO SCH (09:34)
[2018-12-31] MEDS: MULTIVITAMINS, THERA 1 EACH TAB PO SCH (09:34)
[2018-12-31] MEDS: HEPARIN SODIUM,PORCINE 5,000 UNIT/ML 1 ML VIAL SQ SCH (09:34)
[2018-12-31] MEDS: PANTOPRAZOLE 40 MG TABLET PO SCH (09:34)
--- NOTE | 2018-12-31 11:11 | P.DS ---
Providers Date of admission: 12/27/18 08:42 Expected date of discharge: 12/31/18 Attending physician: Brenden Loredo Consults: 12/27/18 16:35 Consult Physician Routine Consulting Provider: Thanh Lopez Reason/Comments: known to you Do you want consulting provider notified?: Yes Primary care physician: [facility] Hospital Course: FINAL DIAGNOSIS: 1. 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 History of interstitial lung disease, COPD 3. Previous tobacco dependence 4. Sleep apnea syndrome without CPAP use 5. Chronic kidney disease 6. Hypothyroidism 7. Diabetes 8. GERD 9. Postoperative extensive subcutaneous emphysema PRINCIPAL PROCEDURE: 1. Left thoracoscopic wedge resection upper lobe of the lung HISTORY OF PRESENT ILLNESS: This is an 88-year-old gentleman who follows on an outpatient basis at the [facility]. He was found to have a newly discovered spiculated mass on CT, and was subsequently sent for PET scan which confirmed a left upper lobe mass approximated 2 cm in diameter with no evidence of metastatic disease, consider to be stage IA disease. The patient was referred to Dr. Loredo from cardiothoracic surgery. Options were discussed regarding radiation therapy, minimally invasive surgical wedge resection, or minimally invasive surgical lobectomy. The patient preferred surgery over radiation. He was recommended to undergo wedge resection over lobectomy as lobectomy was felt to be of limited additional benefit given the patient's age and history of pulmonary disease. The usual perioperative course was discussed in detail with the patient and his family, all risks and benefits were explained, all questions were answered, and consent was obtained to proceed with surgery. The patient was scheduled for surgery at the earliest possible date. HOSPITAL COURSE: The patient was brought to the hospital on 12/27/2018, taken to the preoperative area, prepared in the usual fashion, and subsequently taken to the operating room where Dr. Loredo performed a left thoracoscopic wedge resection of the left upper lobe of the lung. Upon completion of surgery the patient was extubated but did have some difficulty waking up from anesthesia and was placed on BiPAP. He was admitted to the intensive care unit for further close monitoring. He was able to be weaned off BiPAP as he recovered from general anesthesia. On postop day #1 chest x-ray demonstrated extensive subcutaneous emphysema but no pneumothorax, the patient had no air leak in his chest tube and it was discontinued without incident. Subsequent chest x-rays continued to demonstrate subcutaneous emphysema but no pneumothorax. The patient continued to stabilize and was subsequently transferred to the med surge unit when appropriate. His oxygen was titrated down although he continued to have minimal oxygen requirements, he was ambulatory in the hallway, he was tolerating oral diet, his pain was controlled, and he was ready to be discharged to home with 2 L nasal cannula home oxygen on postoperative day #4. He received written and verbal instruction regarding his medications, activity restrictions, signs and symptoms requiring physician notification, and follow-up appointments. COMPLICATIONS: The patient experienced postoperative extensive subcutaneous emphysema which required no treatment. Patient Condition at Discharge: Stable Plan - Discharge Summary Discharge Rx Participant: Yes New Discharge Prescriptions: New Tamsulosin [Flomax] 0.4 mg PO PC-BRKFST #30 cap.er.24h HYDROcodone/APAP 5-325MG [Thomson 5-325] 1 each PO Q6HR PRN #14 tab PRN Reason: Pain Acetaminophen Tab [Tylenol] 1,000 mg PO Q6HR PRN tab PRN Reason: Fever and/ or MILD Pain Continue Budesonide/Formoterol Fumarate [Symbicort 160-4.5 Mcg Inhaler] 1 puff INHALATION DAILY Albuterol Inhaler [Ventolin Hfa Inhaler] 1 - 2 puff INHALATION RT-Q6H PRN PRN Reason: Dyspnea Escitalopram Oxalate 15 mg PO DAILY Omeprazole 20 mg PO DAILY Insulin Glargine [Lantus] 50 unit SQ HS Insulin Aspart [NovoLOG] 15 units SQ AC-TID Multivit-Min/FA/Lycopen/Lutein [Centrum Silver Tablet] 1 each PO DAILY Levothyroxine Sodium [Synthroid] 50 mcg PO DAILY Discharge Medication List Albuterol Inhaler [Ventolin Hfa Inhaler] 1 - 2 puff INHALATION RT-Q6H PRN 11/08/18 [History] Budesonide/Formoterol Fumarate [Symbicort 160-4.5 Mcg Inhaler] 1 puff INHALATION DAILY 11/08/18 [History] Escitalopram Oxalate 15 mg PO DAILY 11/08/18 [History] Insulin Aspart [NovoLOG] 15 units SQ AC-TID 11/08/18 [History] Insulin Glargine [Lantus] 50 unit SQ HS 11/08/18 [History] Multivit-Min/FA/Lycopen/Lutein [Centrum Silver Tablet] 1 each PO DAILY 11/08/18 [History] Omeprazole 20 mg PO DAILY 11/08/18 [History] Levothyroxine Sodium [Synthroid] 50 mcg PO DAILY 12/25/18 [History] Acetaminophen Tab [Tylenol] 1,000 mg PO Q6HR PRN tab 12/31/18 [Rx] HYDROcodone/APAP 5-325MG [Thomson 5-325] 1 each PO Q6HR PRN #14 tab 12/31/18 [Rx] Tamsulosin [Flomax] 0.4 mg PO PC-BRKFST #30 cap.er.24h 12/31/18 [Rx] Follow up Appointment(s)/Referral(s): Brenden Loredo MD [STAFF PHYSICIAN] - 01/10/19 1:30 pm Thanh Lopez DO [Doctor of Osteopathic Medicine] - 01/21/19 1:[address] [facility] [Primary Care Provider] - 01/14/19 1:00 pm (will see AYANA Green) Activity/Diet/Wound Care/Special Instructions: DISCHARGE INSTRUCTIONS: 1. No driving for 2 weeks, or until physician gives their ok. 2. No lifting, pushing, or pulling more than 10 pounds for 2 weeks. The physician will advise of any restriction changes. 3. Continue pain control per as needed orders. 4. Continue with incentive spirometry and splinting until otherwise directed by the physician. 5. Remove all dressings and shower daily. 6. Routine incision care. No powders, lotions, ointments on incisions. 7. Please call surgeon/CRIBBING SETTER for temp greater than 101 F or purulent drainage from incisions. 8. Narcotic medications were discussed with the patient, including the potential for misuse, addiction, and abuse. Opiod Start Talking form was reviewed with the patient. Ophelia CRIBBING SETTER ; Gustavo CRIBBING SETTER Discharge Disposition: HOME SELF-CARE
[2018-12-31 11:12] VITALS: PULSE 80
[2018-12-31 11:14] LABS: Glucose,Whole Blood 260 mg/dL (75-99)
== END 2018-12-31 14:39 | disposition home or self-care (01) | DRG 165 ==
LOC: 2ORMAIN 08:42 → 3SCARD 14:36 → 2SICU 15:27 → 4SSUR 12-30 08:26
PROVIDERS: ADMIT Thoracic Surgery (Cardiothoracic Vascular Surgery); ATTEND Thoracic Surgery (Cardiothoracic Vascular Surgery)
PROC: 0BBG4ZZ Excision of Left Upper Lung Lobe, Percutaneous Endoscopic Approach (ICD-10-PCS; principal; 2018-12-27 10:30)
DX: C34.12 Malignant neoplasm of upper lobe, left bronchus or lung (principal); E11.22 Type 2 diabetes mellitus with diabetic chronic kidney disease; J44.9 Chronic obstructive pulmonary disease, unspecified; J98.2 Interstitial emphysema; E03.9 Hypothyroidism, unspecified; G47.30 Sleep apnea, unspecified; K21.9 Gastro-esophageal reflux disease without esophagitis; N18.9 Chronic kidney disease, unspecified; Z87.891 Personal history of nicotine dependence; Z88.6 Allergy status to analgesic agent; Z88.1 Allergy status to other antibiotic agents; Z88.5 Allergy status to narcotic agent; Z88.2 Allergy status to sulfonamides; Z88.8 Allergy status to other drugs, medicaments and biological substances; Z91.018 Allergy to other foods
CPT/HCPCS: 36600; 71045; 71046; 80048; 82805; 85025; 85027; 86850; 86900; 86901; 88307; 88309; 88313; 88341; 88342; 94640; 94660

== ENCOUNTER → 2019-01-02 | Outpatient (CLI) | payer OTHER ==
--- NOTE | 2019-01-02 08:00 | XR ---
EXAMINATION TYPE: XR chest 2V DATE OF EXAM: 01/02/2019 COMPARISON: Chest x-ray from 2 days ago and older studies. CT chest November 14, 2018. HISTORY: Lung cancer status post partial resection. TECHNIQUE: Frontal and lateral views of the chest are obtained. FINDINGS: There is background chronic emphysematous and parenchymal fibrotic changes without new norah picious focal airspace opacity, pleural effusion, or pneumothorax seen bilaterally. The cardiac silho uette size is stable and within normal limits. Overlying left-sided subcutaneous emphysema redemonstr ated. The osseous structures are intact. IMPRESSION: Chronic emphysematous and fibrotic changes. Overlying subcutaneous emphysema re demonstrated. No definitive new focal infiltrate.
== END | disposition home or self-care (01) ==
LOC: RADXRMAIN 07:37
PROVIDERS: ATTEND Thoracic Surgery (Cardiothoracic Vascular Surgery)
DX: Z09 Encounter for follow-up examination after completed treatment for conditions other than malignant neoplasm (principal); J43.9 Emphysema, unspecified; Z90.2 Acquired absence of lung [part of]
CPT/HCPCS: 71046

== ENCOUNTER 2019-12-13 18:38 | Emergency (ER) | payer MEDICARE, BC ==
[2019-12-13] MEDS ORDERED: SODIUM CHLORIDE 0.9% 500 ML 500 ML IV STA (20:42)
--- NOTE | 2019-12-13 20:59 | ED ---
Fever HPI - General Source: patient, family Mode of arrival: ambulatory Limitations: physical limitation <Jayshree Rachel - Last Filed: 12/13/19 23:13> <Vanessa Hampton - Last Filed: 12/21/19 00:38> - General Chief Complaint: Fever Stated Complaint: Fever, SOB Time Seen by Provider: 12/13/19 20:26 - History of Present Illness Initial Comments: 89-year-old male patient presents to the emergency department today for evaluation of fever. Patient states he had a fever today with T-max at home and 102F. Patient reports he has had intermittent cough states this started on Monday was quite persistent but seems to be improving. Denies any nasal congestion or sore throat. Denies any abdominal pain. States he does have frequent diarrhea, denies any episodes today. Denies nausea or vomiting. States he's been eating and drinking without difficulty. He is reporting frequent urination, denies hematuria or dysuria. Daughter is present and reports that he has been having elevated blood sugars. He does have a history of lung cancer and had resection on the left side approximately one year ago, so far he has been in remission. Denies any rash or wounds. Patient denies any recent rash, shortness of breath, chest pain, abdominal pain, back pain, numbness, tingling, dizziness, weakness, headache, visual changes, or any other complaints. (Jayshree Rachel) - Related Data Home Medications Medication Instructions Recorded Confirmed Escitalopram Oxalate 15 mg PO DAILY 11/08/18 12/13/19 Multivit-Min/FA/Lycopen/Lutein 1 tab PO DAILY 11/08/18 12/13/19 [Centrum Silver Tablet] Omeprazole 20 mg PO DAILY 11/08/18 12/13/19 Albuterol Inhaler [Ventolin Hfa 1 puff INHALATION RT-Q4H PRN 12/13/19 12/13/19 Inhaler] Atorvastatin [Lipitor] 80 mg PO HS 12/13/19 12/13/19 Insulin Aspart [Insulin Aspart 20 unit SQ AC-TID 12/13/19 12/13/19 Flexpen] Insulin Glargine,Hum.rec.anlog 65 unit SQ HS 12/13/19 12/13/19 [Lantus Solostar] Levothyroxine Sodium [Synthroid] 75 mcg PO DAILY 12/13/19 12/13/19 Lidocaine 5% Patch [Lidoderm] 1 patch TOPICAL DAILY PRN 12/13/19 12/13/19 Previous Rx's Medication Instructions Recorded Amoxic-Pot Clav 875-125Mg 1 tab PO Q12HR #20 tablet 12/13/19 [Augmentin 875-125] Allergies Allergy/AdvReac Type Severity Reaction Status Date / Time [place] And Derivatives Allergy Anaphylaxis Verified 12/13/19 23:08 nitroglycerin Allergy Vomiting Verified 12/13/19 23:08 [From Nitro-Dur] NSAIDS (Non-Steroidal Allergy Rash/Hives Verified 12/13/19 23:08 Anti-Inflamma Sulfa (Sulfonamide Allergy Unknown Verified 12/13/19 23:08 Antibiotics) midazolam [From Versed] AdvReac Vomiting Verified 12/13/19 23:08 morphine AdvReac Nausea & Verified 12/13/19 23:08 Vomiting tolmetin [From Tolectin] AdvReac Unknown Verified 12/13/19 23:08 anti-inflammatories Allergy Rash/Hives Uncoded 12/13/19 23:08 Review of Systems ROS Other: All systems not noted in ROS Statement are negative. <Jayshree Rachel - Last Filed: 12/13/19 23:13> ROS Other: All systems not noted in ROS Statement are negative. <Vanessa Hampton - Last Filed: 12/21/19 00:38> ROS Statement: Those systems with pertinent positive or pertinent negative responses have been documented in the HPI. Past Medical History Past Medical History: Cancer, Diabetes Mellitus, GERD/Reflux, Hyperlipidemia, Memory Impairment, Myocardial Infarction ([place]), Thyroid Disorder Additional Past Medical History / Comment(s): hypothyroidism, 2.5 cm area lt lobe upper lung, hx bladder cancer, geraldo hand pain r/t trigger finger, short term memory issues, short of breath, stage lung cancer Last Myocardial Infarction Date:: early 40's History of Any Multi-Drug Resistant Organisms: None Reported Past Surgical History: Cholecystectomy, Orthopedic Surgery Additional Past Surgical History / Comment(s): bilateral thumb surgery, eyes cataracts with lens implants, right shoulder rotator cuff repair, tumors removed from bladder, Past Anesthesia/Blood Transfusion Reactions: Previous Problems w/ Anesthesia, Family History of Problems w/ Anesthesia, Postoperative Nausea & Vomiting (PONV) Additional Past Anesthesia/Blood Transfusion Reaction / Comment(s): trouble breathing after coming out of anesthesia, ponv. unable to use versed. daughter- ponv Past Psychological History: Anxiety, Depression Smoking Status: Never smoker Past Alcohol Use History: None Reported Past Drug Use History: None Reported - Past Family History Mother Family Medical History: No Reported History <Jayshree Rachel - Last Filed: 12/13/19 23:13> General Exam Limitations: physical limitation General appearance: alert, in no apparent distress, other (This is a well- developed, well-nourished adult male patient in no acute distress. Vital signs upon presentation are temperature 100.9F, pulse 94, respirations 24, blood pressure 131/69, pulse ox 92% on room air.) ENT exam: Present: normal exam, normal oropharynx, mucous membranes moist Respiratory exam: Present: rales (Right lung base posteriorly). Absent: normal lung sounds bilaterally, respiratory distress, wheezes, rhonchi, stridor Cardiovascular Exam: Present: regular rate, normal rhythm, normal heart sounds. Absent: systolic murmur, diastolic murmur, rubs, gallop, clicks GI/Abdominal exam: Present: soft, normal bowel sounds. Absent: distended, tenderness, guarding, rebound, rigid Neurological exam: Present: alert, oriented X3, CN II-XII intact Psychiatric exam: Present: normal affect, normal mood Skin exam: Present: warm, dry, intact, normal color. Absent: rash <Jayshree Rachel - Last Filed: 12/13/19 23:13> Course Vital Signs 12/13/19 12/13/19 12/13/19 19:05 22:23 23:16 Temperature 100.9 F H 97.9 F Pulse Rate 94 72 Respiratory 24 16 16 Rate Blood Pressure 131/69 115/53 O2 Sat by Pulse 92 L 96 Oximetry Medical Decision Making - Lab Data Result diagrams: 12/13/19 21:17 12/13/19 21:17 - EKG Data -: EKG Interpreted by Nm - Radiology Data Radiology results: report reviewed, image reviewed <Jayshree Rachel - Last Filed: 12/13/19 23:13> - Lab Data Result diagrams: 12/13/19 21:17 12/13/19 21:17 <Vanessa Hampton - Last Filed: 12/21/19 00:38> - Medical Decision Making 89-year-old male patient presents to the emergency department today for evaluation of fever. Temperature is high as 102F at home. Has been coughing since Monday those seems to be improving. Physical examination did reveal some rales in the right lung base. No rash or wounds. Labs reviewed and did reveal white blood cell count at 10.7, neutrophils 9.4, lymphocyte 0.7. Sodium 135, CO2 21, BUN 23. Glucose 276. Urinalysis showed moderate leukocyte esterase, 29 white blood cells, rare mucous. Coronavirus, influenza testing were negative. I did discuss findings and results with the patient. He was given option to be admitted to the hospital for IV antibiotics and further monitoring. He states he would like to be tried on outpatient antibiotics first. He does appear well, vital signs are within normal ranges. He will be discharged with prescription for Augmentin for both urine and lung coverage. He will be instructed to follow-up with his primary care physician for recheck Monday. He does live at home with his daughter. Return parameters were discussed in detail. He verbalizes understanding and agrees with this plan. (Jayshree Rachel) I was available for consultation in the emergency department. The history and physical exam were done by the midlevel provider. I was consulted for this patients care. I reviewed the case with the midlevel provider and based on their presentation of the patient, I agree with the assessment, medical decision making and plan of care as documented. Chart was dictated using [employer] dictation software. Attempts were made to correct any dictation errors however some typographical errors may persist. Patient was seen during a national state of emergency due to the Covid-19 pandemic. (Vanessa Hampton) - Lab Data Lab Results 12/13/19 12/13/19 12/13/19 Range/Units 20:42 21:17 21:17 WBC 10.7 H (3.8-10.6) k/uL RBC 4.12 L (4.30-5.90) m/uL Hgb 13.6 (13.0-17.5) gm/dL Hct 38.8 L (39.0-53.0) % MCV 94.1 (80.0-100.0) fL MCH 32.9 (25.0-35.0) pg MCHC 35.0 (31.0-37.0) g/dL RDW 12.6 (11.5-15.5) % Plt Count 155 (150-450) k/uL Neutrophils % 88 % Lymphocytes % 6 % Monocytes % 4 % Eosinophils % 1 % Basophils % 1 % Neutrophils # 9.4 H (1.3-7.7) k/uL Lymphocytes # 0.7 L (1.0-4.8) k/uL Monocytes # 0.4 (0-1.0) k/uL Eosinophils # 0.1 (0-0.7) k/uL Basophils # 0.1 (0-0.2) k/uL Sodium 135 L (137-145) mmol/L Potassium 4.6 (3.5-5.1) mmol/L Chloride 105 (98-107) mmol/L Carbon Dioxide 21 L (22-30) mmol/L Anion Gap 9 mmol/L BUN 23 H (9-20) mg/dL Creatinine 1.14 (0.66-1.25) mg/dL Est GFR (CKD-EPI)AfAm 66 (>60 ml/min/1.73 sqM) Est GFR (CKD-EPI)NonAf 57 (>60 ml/min/1.73 sqM) Glucose 276 H (74-99) mg/dL Plasma Lactic Acid Ricardo (0.7-2.0) mmol/L Calcium 8.7 (8.4-10.2) mg/dL Total Bilirubin 1.0 (0.2-1.3) mg/dL AST 69 H (17-59) U/L ALT 48 (4-49) U/L Alkaline Phosphatase 79 (38-126) U/L Total Protein 6.7 (6.3-8.2) g/dL Albumin 3.6 (3.5-5.0) g/dL Urine Color Yellow Urine Appearance Clear (Clear) Urine pH 5.5 (5.0-8.0) Ur Specific [place] 1.017 (1.001-1.035) Urine Protein Trace H (Negative) Urine Glucose (UA) 4+ H (Negative) Urine Ketones Negative (Negative) Urine Blood Negative (Negative) Urine Nitrite Negative (Negative) Urine Bilirubin Negative (Negative) Urine Urobilinogen <2.0 (<2.0) mg/dL Ur Leukocyte Esterase Moderate H (Negative) Urine RBC 2 (0-5) /hpf Urine WBC 29 H (0-5) /hpf Ur Squamous Epith Cells <1 (0-4) /hpf Urine Mucus Rare H (None) /hpf Coronavirus (PCR) (Not Detectd) Influenza Type A RNA (Not Detectd) Influenza Type B (PCR) (Not Detectd) 12/13/19 12/13/19 12/13/19 Range/Units 21:17 21:17 21:17 WBC (3.8-10.6) k/uL RBC (4.30-5.90) m/uL Hgb (13.0-17.5) gm/dL Hct (39.0-53.0) % MCV (80.0-100.0) fL MCH (25.0-35.0) pg MCHC (31.0-37.0) g/dL RDW (11.5-15.5) % Plt Count (150-450) k/uL Neutrophils % % Lymphocytes % % Monocytes % % Eosinophils % % Basophils % % Neutrophils # (1.3-7.7) k/uL Lymphocytes # (1.0-4.8) k/uL Monocytes # (0-1.0) k/uL Eosinophils # (0-0.7) k/uL Basophils # (0-0.2) k/uL Sodium (137-145) mmol/L Potassium (3.5-5.1) mmol/L Chloride (98-107) mmol/L Carbon Dioxide (22-30) mmol/L Anion Gap mmol/L BUN (9-20) mg/dL Creatinine (0.66-1.25) mg/dL Est GFR (CKD-EPI)AfAm (>60 ml/min/1.73 sqM) Est GFR (CKD-EPI)NonAf (>60 ml/min/1.73 sqM) Glucose (74-99) mg/dL Plasma Lactic Acid Ricardo 1.9 (0.7-2.0) mmol/L Calcium (8.4-10.2) mg/dL Total Bilirubin (0.2-1.3) mg/dL AST (17-59) U/L ALT (4-49) U/L Alkaline Phosphatase (38-126) U/L Total Protein (6.3-8.2) g/dL Albumin (3.5-5.0) g/dL Urine Color Urine Appearance (Clear) Urine pH (5.0-8.0) Ur Specific [place] (1.001-1.035) Urine Protein (Negative) Urine Glucose (UA) (Negative) Urine Ketones (Negative) Urine Blood (Negative) Urine Nitrite (Negative) Urine Bilirubin (Negative) Urine Urobilinogen (<2.0) mg/dL Ur Leukocyte Esterase (Negative) Urine RBC (0-5) /hpf Urine WBC (0-5) /hpf Ur Squamous Epith Cells (0-4) /hpf Urine Mucus (None) /hpf Coronavirus (PCR) Not Detected (Not Detectd) Influenza Type A RNA Not Detected (Not Detectd) Influenza Type B (PCR) Not Detected (Not Detectd) - EKG Data EKG Comments: EKG obtained at 2124 shows sinus rhythm with a first-degree AV block with occasional PVCs. Ventricular rate is 75,. Interval to 20, QRS duration 80, QT 368, QTC 410. No evidence of ST elevation or depression. (Jayshree Rachel) - Radiology Data Two-view x-ray of the chest is obtained. Report was reviewed in its entirety. Impression by Dr. Irwin shows pulmonary interstitial fibrosis unchanged. No acute lung disease. There is clearing of some left-sided perihilar infiltrate compared to old exam. (Jayshree Rachel) Disposition Is patient prescribed a controlled substance at d/c from ED?: No Time of Disposition: 22:56 <Jayshree Rachel - Last Filed: 12/13/19 23:13> <Vanessa Hampton - Last Filed: 12/21/19 00:38> Clinical Impression: Urinary tract infection, Upper respiratory infection Disposition: HOME SELF-CARE Condition: Good Instructions (If sedation given, give patient instructions): Urinary Tract Infection in Men (ED), Fever in Adults (ED), Upper Respiratory Infection (ED) Additional Instructions: Complete antibiotic prescription and full. Follow-up through primary care physician for recheck on Monday. Return to the emergency department immediately for any new, worsening, or concerning symptoms. Prescriptions: Amoxic-Pot Clav 875-125Mg [Augmentin 875-125] 1 tab PO Q12HR #20 tablet Referrals: [facility],Clinic [Primary Care Provider] - 1-2 days
[2019-12-13 21:19] LABS: Basophils # (A) 0.1 k/uL (0-0.2); Basophils % (A) 1 %; Eosinophils # (A) 0.1 k/uL (0-0.7); Eosinophils % (A) 1 %; HCT 38.8 % (39.0-53.0); HGB 13.6 gm/dL (13.0-17.5); Lymphocytes # (A) 0.7 k/uL (1.0-4.8); Lymphocytes % (A) 6 %; MCH 32.9 pg (25.0-35.0); MCV 94.1 fL (80.0-100.0); Mean Platelet Volume 7.2; Monocytes # (A) 0.4 k/uL (0-1.0); Monocytes % (A) 4 %; Neutrophils # (A) 9.4 k/uL (1.3-7.7); Neutrophils % (A) 88 %; Platelet Count 155 k/uL (150-450); RBC 4.12 m/uL (4.30-5.90); RDW 12.6 % (11.5-15.5); WBC 10.7 k/uL (3.8-10.6)
[2019-12-13 21:37] LABS: Albumin 3.6 g/dL (3.5-5.0); Calcium 8.7 mg/dL (8.4-10.2); Potassium 4.6 mmol/L (3.5-5.1); Total Protein 6.7 g/dL (6.3-8.2)
--- NOTE | 2019-12-13 22:06 | XR ---
EXAMINATION TYPE: XR chest 2V DATE OF EXAM: 12/13/2019 COMPARISON: 01/02/2019 HISTORY: Fever and cough TECHNIQUE: 2 views FINDINGS: There is coarse pulmonary interstitial density in the lungs. Heart size is normal. There is no heart failure. There are no hilar masses. Costophrenic angles are clear. IMPRESSION: Pulmonary interstitial fibrosis unchanged. No acute lung disease. There is clearing of so me left side perihilar infiltrate compared to old exam.
[2019-12-13 22:25] VITALS: BP 115/53; PULSE 72; RESP 16; TEMP 97.9
[2019-12-13 22:31] LABS: Appearance,Urine Clear (Clear); Bilirubin,Urine Negative (Negative); Blood,Urine Negative (Negative); Color,Urine Yellow; Glucose,Urine (UA) 4+ (Negative); Ketones,Urine Negative (Negative); Leukocyte Esterase,Urine Moderate (Negative); Mucus,Urine Rare /hpf; Nitrite,Urine Negative (Negative); PH, Urine 5.5 (5.0-8.0); Protein,Urine Trace (Negative); RBC,Urine 2 /hpf (0-5); Specific Gravity,Urine 1.017 (1.001-1.035); Squamous Epithelial Cell,Urine <1 /hpf (0-4); Urobilinogen,Urine <2.0 mg/dL (<2.0); WBC,Urine 29 /hpf (0-5)
[2019-12-13] MEDS ORDERED: AMOXIC-POT CLAV 875MG STARTER PACK 2 TAB BTL PO STA (22:55)
== END 2019-12-13 23:18 | disposition home or self-care (01) ==
LOC: EC 18:38
DX: J06.9 Acute upper respiratory infection, unspecified (principal); N39.0 Urinary tract infection, site not specified; F41.9 Anxiety disorder, unspecified; F32.9 Major depressive disorder, single episode, unspecified; K21.9 Gastro-esophageal reflux disease without esophagitis; I25.2 Old myocardial infarction; E11.9 Type 2 diabetes mellitus without complications; E78.5 Hyperlipidemia, unspecified; E03.9 Hypothyroidism, unspecified; Z79.890 Hormone replacement therapy; Z79.4 Long term (current) use of insulin; Z79.899 Other long term (current) drug therapy; Z91.018 Allergy to other foods; Z88.8 Allergy status to other drugs, medicaments and biological substances; Z88.6 Allergy status to analgesic agent; Z88.2 Allergy status to sulfonamides; Z88.5 Allergy status to narcotic agent; Z88.4 Allergy status to anesthetic agent; Z90.49 Acquired absence of other specified parts of digestive tract; Z85.118 Personal history of other malignant neoplasm of bronchus and lung; Z85.51 Personal history of malignant neoplasm of bladder
CPT/HCPCS: 36415; 71046; 80053; 81001; 83605; 85025; 87040; 87086; 87502; 87635; 93005; 99284